=== PATIENT | female | born 1980 | race Caucasian/White ===

== ENCOUNTER → 2017-02-21 | Outpatient (CLI) | payer MEDICAID ==
--- NOTE | 2017-02-21 19:45 | Diagnostic Imaging Report ---
INDICATION: Vaginal pain, left lower quadrant pain. TECHNIQUE: Multiple real time conklin scale sonographic images were obtained of the pelvis transabdominally and transvaginally. CORRELATION STUDY: 05/24/2014 FINDINGS: UTERUS/ENDOMETRIUM: Uterus measures 9.1 x 6.2 x 4.6 cm. Endometrial thickness is 7 mm. The uterus and endometrium appearing unremarkable. RIGHT OVARY: Not visualized. LEFT OVARY: Not visualized. Neither ovary is visualized, perhaps a technical, positional or obscured by overlying bowel gas. No significant free pelvic fluid. IMPRESSION: 1. Limited pelvic ultrasound imaging. Ovaries are unable to be definitively localized. Dictated by: Dictated on workstation # [id number]
== END ==
LOC: RAD 09:58
PROVIDERS: ATTEND Nurse Practitioner
DX: N93.0 Postcoital and contact bleeding (principal)
CPT/HCPCS: 76830; 76856

== ENCOUNTER 2017-05-24 05:38 | Outpatient (CLI) | payer MEDICAID ==
[~2017-05-24] VITALS: Ht 158.8 cm; Wt 105.7 kg
[2017-05-24] MEDS ORDERED: METF500T4 PO (10:37)
[2017-05-24] MEDS ORDERED: PHEN-483 PO (10:37)
[2017-05-24] MEDS ORDERED: SERT100T PO (10:37)
[2017-05-24] MEDS ORDERED: MEDR10TA PO (10:37)
[2017-05-24] MEDS ORDERED: CYCL10TA9 PO (10:37)
[2017-05-24] MEDS ORDERED: ARIP15TA4 PO (10:37)
[2017-05-24] MEDS ORDERED: BUSP5TAB59 PO (10:37)
== END 2017-05-24 10:58 ==
LOC: PREOP 05:38
PROVIDERS: ATTEND Obstetrics & Gynecology
DX: Z01.818 Encounter for other preprocedural examination (principal); N92.0 Excessive and frequent menstruation with regular cycle

== ENCOUNTER 2017-05-30 07:20 | Day surgery (SDC) | payer MEDICAID ==
[~2017-05-30] VITALS: Ht 158.8 cm; Wt 105.7 kg
[~2017-05-30 07:20] MED LIST: ARIP15TA4 PO; BUSP5TAB59 PO; CYCL10TA9 PO; MEDR10TA PO; METF500T4 PO; PHEN-483 PO; SERT100T PO
--- OUTSIDE RECORDS SUMMARY | 2017-05-30 07:23 | XMS REPORT ---
Author Author YENIFER HUMMEL [facility] eClinicalWorks Address Unknown Phone Unavailable Care Team Providers Care Boxing Instructor Name Role Phone YENIFER HUMMEL CP Unavailable Allergies, Adverse Reactions, Alerts Substance Reaction Event Type Topamax chest heaviness Drug Allergy Sulfamethoxazole-Trimethoprim hives Drug Allergy Prozac anxiety Drug Allergy Problems Problem Type Condition Code Onset Dates Condition Status Assessment Neck pain M54.2 Active Problem Abnormal weight gain 783.1 Active Problem Bipolar I disorder, most recent episode (or current) depressed, unspecified 296.50 Active Problem Elevated blood pressure reading without diagnosis of hypertension 796.2 Active Problem Dietary surveillance and counseling V65.3 Active Assessment Trapezius muscle spasm M62.838 Active Problem Personal history of allergy to sulfonamides V14.2 Active Problem Major depressive disorder, single episode, unspecified 296.20 Active Medications Medication Code System Code Instructions Start Date End Date Status Dosage Sertraline HCl [facility] [address]-35 100 MG Orally Once a day August 26, 2014 1.5 tablets Abilify [facility] [address]-51 15 MG Orally Once a day Mar 05, 2014 1 tablet Cyclobenzaprine HCl [facility] [address]-90 10 MG Orally Three times a day PRN Feb 04, 2015 1 tablet Saxenda [facility] 0 Saxenda 18mg/3ml ([facility] 5345-5015-27) SUBCUT Once a week 1 injection BusPIRone HCl [facility] [address]-21 5 MG Orally Twice a day Oct 29, 2014 1 tablet UltiCare Pen [place] [facility] 8222-660466 29G X 12MM subcutaneous Once a day October 15, 2014 as directed Procedures Procedure Coding System Code Date Office Visit, Est Pt., Level 3 CPT-4 04052 Feb 04, 2015 Vital Signs Date/Time: Feb 04, 2015 Temperature 98.3 F Weight 218.4 lbs Height 63 in BMI 38.68 Index Blood Pressure Diastolic 82 mmHg Blood Pressure Systolic 110 mmHg Cardiac Monitoring Heart Rate 88 bpm Results Name Result Date Reference Range Unit Abnormality Flag Xray : Spine, Cervical Summary Purpose eClinicalWorks Submission
--- OUTSIDE RECORDS SUMMARY | 2017-05-30 07:23 | XMS REPORT ---
Author Author YENIFER HUMMEL Organization eClinicalWorks Address Unknown Phone Unavailable Care Team Providers Care Health Technician Hearing Name Role Phone YENIFER HUMMEL CP Unavailable Allergies No Known Allergies Problems Problem Type Condition Code Onset Dates Condition Status Problem Abnormal weight gain 783.1 Active Problem Bipolar I disorder, most recent episode (or current) depressed, unspecified 296.50 Active Problem Elevated blood pressure reading without diagnosis of hypertension 796.2 Active Problem Dietary surveillance and counseling V65.3 Active Problem Personal history of allergy to sulfonamides V14.2 Active Problem Major depressive disorder, single episode, unspecified 296.20 Active Medications Medication Code System Code Instructions Start Date End Date Status Dosage BusPIRone HCl [facility] [address]-89 5 MG Orally Twice a day Oct 29, 2014 1 tablet Results No Known Results Summary Purpose eClinicalWorks Submission
--- OUTSIDE RECORDS SUMMARY | 2017-05-30 07:23 | XMS REPORT ---
Author Author YENIFER HUMMEL [facility] eClinicalWorks Address Unknown Phone Unavailable Care Team Providers Care Cook Apprentice Name Role Phone YENIFER HUMMEL CP Unavailable Allergies, Adverse Reactions, Alerts Substance Reaction Event Type Topamax chest heaviness Drug Allergy Sulfamethoxazole-Trimethoprim hives Drug Allergy Prozac anxiety Drug Allergy Problems Problem Type Condition Code Onset Dates Condition Status Assessment Radiculopathy, cervical region M54.12 Active Problem Abnormal weight gain 783.1 Active Problem Bipolar I disorder, most recent episode (or current) depressed, unspecified 296.50 Active Problem Elevated blood pressure reading without diagnosis of hypertension 796.2 Active Problem Dietary surveillance and counseling V65.3 Active Assessment Cervicalgia M54.2 Active Problem Personal history of allergy to sulfonamides V14.2 Active Problem Major depressive disorder, single episode, unspecified 296.20 Active Medications Medication Code System Code Instructions Start Date End Date Status Dosage BusPIRone HCl [facility] [address]-37 5 MG Orally Twice a day Oct 29, 2014 1 tablet Sertraline HCl [facility] [address]-62 100 MG Orally Once a day August 26, 2014 1.5 tablets Saxenda NDC 0 Saxenda 18mg/3ml ([facility] 5672-9917-31) SUBCUT Once a week 1 injection Cyclobenzaprine HCl [facility] [address]-44 10 MG Orally Three times a day PRN Feb 04, 2015 1 [address] [facility] [address]-33 15 MG Orally Once a day Mar 05, 2014 1 tablet UltiCare Pen [place] [facility] 8222-773236 29G X 12MM subcutaneous Once a day October 15, 2014 as directed Procedures Procedure Coding System Code Date Office Visit, Est Pt., Level 3 CPT-4 26220 Feb 16, 2015 Vital Signs Date/Time: Feb 16, 2015 Temperature 98.4 F Weight 215 lbs Height 63 in BMI 38.08 Index Blood Pressure Diastolic 60 mmHg Blood Pressure Systolic 120 mmHg Cardiac Monitoring Heart Rate 80 bpm Results No Known Results Summary Purpose eClinicalWorks Submission
--- OUTSIDE RECORDS SUMMARY | 2017-05-30 07:23 | XMS REPORT ---
Author Author IFEANYI CASTILLO [facility] Address [address] [place] [address] Care Team Providers Care Executive Director Of Nursing Name Role Phone CASTILLOIFEANYI TAYLOR Unavailable PROBLEMS Type Condition ICD9-CM Code [id number] Code Onset Dates Condition Status SNOMED Code Problem Obesity due to excess calories, unspecified obesity severity E66.09 Active 177998635 Problem Anhedonia R45.84 Active 58303391 Problem Anxiety F41.9 Active 36206962 Problem Bipolar I disorder, most recent episode depressed F31.30 Active 82884021 Problem Gallstones K80.20 Active 331159696 Problem Muscle spasm M62.838 Active 07435654 Problem Elevated fasting blood sugar R73.01 Active 114303675 Problem Pain in right shoulder M25.511 Active 07870600 Problem Pain in left shoulder M25.512 Active 10624374 Problem Mixed hyperlipidemia E78.2 Active 927310407 Problem Type 2 diabetes mellitus with hyperglycemia, without long-term current use of insulin E11.65 Active 54109344 ALLERGIES No Information SOCIAL HISTORY Never Assessed PLAN OF CARE VITAL SIGNS MEDICATIONS Medication Instructions Dosage Frequency Start Date End Date Duration Status Sertraline HCl 100 mg Orally Once a day 1.5 tablets 24h Aug, 0 days Active BusPIRone HCl 5 mg Orally Twice a day 1 tablet 12h Oct, 0 days Active Abilify 15 MG Orally Once a day 1 tablet 24h Feb, 0 days Active RESULTS No Results PROCEDURES No Known procedures IMMUNIZATIONS No Known Immunizations MEDICAL (GENERAL) HISTORY Type Description Date Medical History depression Medical History allergies Medical History obesity Medical History anxiety Medical History Personal history of allergy to sulfonamides Surgical History cholecystectomy 05/2016 Hospitalization History childbirth
--- OUTSIDE RECORDS SUMMARY | 2017-05-30 07:24 | XMS REPORT ---
Author YENIFER Nesbitt eClinicalWorks Address Unknown Phone Unavailable Care Team Providers Care National Account Representative Name Role Phone YENIFER HUMMEL CP Unavailable Allergies, Adverse Reactions, Alerts Substance Reaction Event Type Topamax chest heaviness Drug Allergy Sulfamethoxazole-Trimethoprim hives Drug Allergy Prozac anxiety Drug Allergy Problems Problem Type Condition ICD-9 Code Onset Dates Condition Status Problem Major depressive disorder, recurrent episode, unspecified 296.30 Active Problem Other abnormal glucose 790.29 Active Problem Face, neck, and scalp except eye, insect bite, nonvenomous, without mention of infection 910.4 Active Problem Elevated blood pressure reading without diagnosis of hypertension 796.2 Active Assessment Bronchitis 490 Active Problem Abnormal weight gain 783.1 Active Problem Depressive disorder, not elsewhere classified 311 Active Problem Anxiety state, unspecified 300.00 Active Problem Unspecified ganglion 727.43 Active Problem Allergic rhinitis due to pollen 477.0 Active Problem Acute suppurative otitis media without spontaneous rupture of eardrum 382.00 Active Problem Dietary surveillance and counseling V65.3 Active Problem Headache 784.0 Active Assessment Cough 786.2 Active Problem Allergic rhinitis, cause unspecified 477.9 Active Problem Major depressive disorder, single episode, unspecified 296.20 Active Problem Personal history of allergy to sulfonamides V14.2 Active Problem Major depressive disorder, recurrent episode, severe, without mention of psychotic behavior 296.33 Active Problem Disturbance of skin sensation 782.0 Active Problem Pain in thoracic spine 724.1 Active Problem Bipolar I disorder, most recent episode (or current) depressed, unspecified 296.50 Active Medications Medication Code System Code Instructions Start Date End Date Status Dosage UltiCare Pen [place] [facility] 8222-708354 29G X 12MM subcutaneous Once a day October 15, 2014 as directed Saxenda [place] 0 Saxenda 18mg/3ml ([facility] 2171-0428-84) SUBCUT Once a day [address] [facility] [address]-36 250 MG Orally Once a day Nov 13, 2014 Nov 18, 2014 2 tablets on the first day, then 1 tablet daily for 4 days BusPIRone HCl [facility] [address]-68 5 MG Orally Twice a day Oct 29, 2014 1 tablet Tessalon [place] [facility] [address]-95 100 MG Orally Three times a day Nov 13, 2014 1 capsule as needed Sertraline HCl [facility] [address]-32 100 MG Orally Once a day August 26, 2014 1.[address] [facility] [address]-64 15 MG Orally Once a day Mar 05, 2014 1 tablet Procedures Procedure Coding System Code Date Office Visit, Est Pt., Level 3 CPT-4 62513 Nov 13, 2014 Vital Signs Date/Time: Nov 13, 2014 Temperature 98.2 F Weight 213.3 lbs Height 63 in BMI 37.78 Index Blood Pressure Diastolic 72 mmHg Blood Pressure Systolic 114 mmHg Cardiac Monitoring Heart Rate 88 bpm Results No Known Results Summary Purpose eClinicalWorks Submission
--- OUTSIDE RECORDS SUMMARY | 2017-05-30 07:24 | XMS REPORT ---
Author Author YENIFER HUMMEL [facility] eClinicalWorks Address Unknown Phone Unavailable Care Team Providers Care Circle Saw Operator Name Role Phone YENIFER HUMMEL Unavailable Allergies No Known Allergies Problems Problem [...] Date End Date Status Dosage Sertraline HCl [facility] [address]-25 100 MG Orally Once a day August 26, 2014 1.5 tablets Abilify [facility] [address]-13 15 MG Orally Once a day Mar 05, 2014 1 tablet Results No Known Results Summary Purpose eClinicalWorks Submission
--- OUTSIDE RECORDS SUMMARY | 2017-05-30 07:24 | XMS REPORT ---
Author Author YENIFER HUMMEL [facility] eClinicalWorks Address Unknown Phone Unavailable Care Team Providers Care Seamless Tube Mill Operator Name Role Phone YENIFER HUMMEL Unavailable [...] Instructions Start Date End Date Status Dosage Saxenda (Dose Escalation) [facility] 6057-6147-80 18 mg/3 mL Subcutaneous Once a day Apr 11, 2015 0.6 mg QD x 7 days, 1.2 mg QD x 7 days, 1.8 mg QD x 7 days, 2.4 mg QD x 7 days, then 3 mg QD (GOAL) Results No Known Results Summary Purpose eClinicalWorks Submission
--- OUTSIDE RECORDS SUMMARY | 2017-05-30 07:24 | XMS REPORT ---
Author Author YEYO RUDOLPH [facility] Address [address] [place] [address] Care Team Providers Care Tow Picker Name Role Phone YEYO RUDOLPH Unavailable PROBLEMS Type Condition ICD9-CM Code [id number] Code Onset Dates Condition Status SNOMED Code Problem Obesity due to excess calories, unspecified obesity severity E66.09 Active 199482229 Problem Anhedonia R45.84 Active 15994497 Problem Anxiety F41.9 Active 72309640 Problem Bipolar I disorder, most recent episode depressed F31.30 Active 85516012 Problem Gallstones K80.20 Active 265709499 Problem Muscle spasm M62.838 Active 24060073 Problem Elevated fasting blood sugar R73.01 Active 636183064 Problem Pain in right shoulder M25.511 Active 19200275 Problem Pain in left shoulder M25.512 Active 59289508 Problem Mixed hyperlipidemia E78.2 Active 965305883 Problem Type 2 diabetes mellitus with hyperglycemia, without long-term current use of insulin E11.65 Active 65286821 ALLERGIES Substance Reaction Event Type Date Status Topamax chest heaviness Drug Allergy July, Active Sulfamethoxazole-Trimethoprim hives Drug Allergy July, Active Prozac anxiety Drug Allergy July, Active SOCIAL HISTORY Never Assessed PLAN OF CARE Activity Details Follow Up 4 Weeks Reason:CHM DM VITAL SIGNS Height 63 in 2016-08-01 Weight 243.4 lbs 2016-08-01 Temperature 98.1 degrees Fahrenheit 2016-08-01 Heart Rate 94 bpm 2016-08-01 Respiratory Rate 20 2016-08-01 BMI 43.11 kg/m2 2016-08-01 Blood pressure systolic 132 mmHg 2016-08-01 Blood pressure diastolic 88 mmHg 2016-08-01 MEDICATIONS Medication Instructions Dosage Frequency Start Date End Date Duration Status Abilify 15 MG Orally Once a day 1 tablet 24h 0 days Active Cyclobenzaprine HCl 10 MG Orally Three times a day PRN 1 tablet Jan, Active Metformin HCl 500 mg Orally Twice a day 2 tablet with meals (start with 1 tablet 1 time per day and increase as tolerated to goal ) 12h 10 Jul, 2016 30 day(s) Active Sertraline HCl 100 mg Orally Once a day 1.5 tablets 24h 0 days Active BusPIRone HCl 5 mg Orally Twice a day 1 tablet 12h 0 days Active RESULTS Name Result Date Reference Range A1C (IN HOUSE) 2016-08-01 A1C IN HOUSE 7.2 4.3 - 5.6 % Previous A1c Lot [id number] Exp date 12/2017 PROCEDURES Procedure Date Ordered Result Body Site GLYCATED HEMOGLOBIN TEST August 01, 2016 IMMUNIZATIONS No Known Immunizations MEDICAL (GENERAL) HISTORY Type Description Date Medical History depression Medical History allergies Medical History obesity Medical History anxiety Medical History Personal history of allergy to sulfonamides Surgical History cholecystectomy 05/2016 Hospitalization History childbirth
--- OUTSIDE RECORDS SUMMARY | 2017-05-30 07:24 | XMS REPORT ---
Author Author YENIFER HUMMEL [facility] eClinicalWorks Address Unknown Phone Unavailable Care Team Providers Care Statement Services Representative Name Role Phone YENIFER HUMMEL CP Unavailable Allergies, Adverse Reactions, Alerts Substance Reaction Event Type Topamax chest heaviness Drug Allergy Sulfamethoxazole-Trimethoprim hives Drug Allergy Prozac anxiety Drug Allergy Problems Problem Type Condition Code Onset Dates Condition Status Assessment Non-intractable vomiting with nausea, vomiting of unspecified type R11.2 Active Assessment Lumbar radicular pain M54.16 Active Problem Abnormal weight gain 783.1 Active Problem Bipolar I disorder, most recent episode (or current) depressed, unspecified 296.50 Active Problem Elevated blood pressure reading without diagnosis of hypertension 796.2 Active Problem Dietary surveillance and counseling V65.3 Active Assessment Right upper quadrant pain R10.11 Active Problem Personal history of allergy to sulfonamides V14.2 Active Problem Major depressive disorder, single episode, unspecified 296.20 Active Medications Medication Code System Code Instructions Start Date End Date Status Dosage BusPIRone HCl [facility] [address]-71 5 MG Orally Twice a day Oct 29, 2014 1 tablet Sertraline HCl [facility] [address]-28 100 MG Orally Once a day August 26, 2014 1.5 tablets Abilify [facility] [address]-10 15 MG Orally Once a day Mar 05, 2014 1 tablet Cyclobenzaprine HCl [facility] [address]-36 10 MG Orally Three times a day PRN Feb 04, 2015 1 tablet Procedures Procedure Coding System Code Date Office Visit, Est Pt., Level 3 CPT-4 76871 October 10, 2015 Vital Signs Date/Time: October 10, 2015 Cardiac Monitoring Heart Rate 96 bpm Weight 233.8 lbs Height 63 in Blood Pressure Diastolic 70 mmHg Blood Pressure Systolic 110 mmHg Results No Known Results Summary Purpose eClinicalWorks Submission
--- OUTSIDE RECORDS SUMMARY | 2017-05-30 07:24 | XMS REPORT ---
Author Author YENIFER HUMMEL Organization eClinicalWorks Address Unknown Phone Unavailable Care Team Providers Care Literary Writer Name Role Phone YENIFER HUMMEL CP Unavailable [...] Start Date End Date Status Dosage Saxenda NDC 0 Saxenda 18mg/3ml ([place] 3978-4203-88) SUBCUT Once a week 1 injection Results No Known Results Summary Purpose eClinicalWorks Submission
--- OUTSIDE RECORDS SUMMARY | 2017-05-30 07:24 | XMS REPORT ---
Author Author IFEANYI CASTILLO Organization eClinicalWorks Address Unknown Phone Unavailable Care Team Providers Care Sandal Parts Assembler Name Role Phone IFEANYI CASTILLO CP Unavailable Allergies No Known Allergies Problems Problem Type Condition Code Onset Dates Condition Status Problem Elevated blood pressure reading without diagnosis of hypertension 796.2 Active Problem Abnormal weight gain 783.1 Active Problem Bipolar I disorder, most recent episode depressed F31.30 Active Problem Major depressive disorder, single episode, unspecified 296.20 Active Problem Dietary surveillance and counseling V65.3 Active Problem Bipolar I disorder, most recent episode (or current) depressed, unspecified 296.50 Active Problem Personal history of allergy to sulfonamides V14.2 Active Medications Medication Code System Code Instructions Start Date End Date Status Dosage Sertraline HCl [facility] [address]-32 100 MG Orally Once a day August 26, 2014 1.5 tablets BusPIRone HCl [facility] [address]-59 5 mg Orally Twice a day Oct 29, 2014 1 tablet Results No Known Results Summary Purpose eClinicalWorks Submission
--- OUTSIDE RECORDS SUMMARY | 2017-05-30 07:24 | XMS REPORT ---
Author Author IFEANYI CASTILLO Organization eClinicalWorks Address Unknown Phone Unavailable Care Team Providers Care Asphalt Screed Operator Name Role Phone IEFANYI CASTILLO CP Unavailable Allergies, Adverse Reactions, Alerts Substance Reaction Event Type Topamax chest heaviness Drug Allergy Sulfamethoxazole-Trimethoprim hives Drug Allergy Prozac anxiety Drug Allergy Problems Problem Type Condition Code Onset Dates Condition Status Assessment Bipolar I disorder, most recent episode depressed F31.30 Active Problem Elevated blood pressure reading without [...] Instructions Start Date End Date Status Dosage Abilify [facility] [address]-95 15 MG Orally Once a day Mar 05, 2014 1 tablet Sertraline HCl [facility] [address]-62 100 MG Orally Once a day August 26, 2014 1.5 tablets BusPIRone HCl [facility] [address]-72 5 MG Orally Twice a day Oct 29, 2014 1 tablet Cyclobenzaprine HCl [facility] [address]-42 10 MG Orally Three times a day PRN Feb 04, 2015 1 tablet Procedures Procedure Coding System Code Date Office Visit, Est Pt., Level 3 CPT-4 94748 Dec 20, 2015 Vital Signs Date/Time: Dec 20, 2015 Cardiac Monitoring Heart Rate 84 bpm Weight 239.4 lbs Height 63 in BMI 42.40 Index Blood Pressure Diastolic 70 mmHg Blood Pressure Systolic 128 mmHg Results No Known Results Summary Purpose eClinicalWorks Submission
--- OUTSIDE RECORDS SUMMARY | 2017-05-30 07:24 | XMS REPORT ---
Author Author YENIFER HUMMEL Organization eClinicalWorks Address Unknown Phone Unavailable Care Team Providers Care Pcb Design Engineer Name Role Phone YENIFER HUMMEL CP Unavailable Allergies, Adverse Reactions, Alerts Substance Reaction Event Type Topamax chest heaviness Drug Allergy Sulfamethoxazole-Trimethoprim hives Drug Allergy Prozac anxiety Drug Allergy Problems Problem Type Condition ICD-9 Code Onset Dates Condition Status Assessment Obesity 278.00 Active Problem Abnormal weight gain 783.1 Active Problem Bipolar I disorder, most recent episode (or current) depressed, unspecified 296.50 Active Problem Elevated blood pressure reading without diagnosis of hypertension 796.2 Active Problem Dietary surveillance and counseling V65.3 Active Assessment Dietary surveillance and counseling V65.3 Active Problem Personal history of allergy to sulfonamides V14.2 Active Problem Major depressive disorder, single episode, unspecified 296.20 Active Medications Medication Code System Code Instructions Start Date End Date Status Dosage Abilify [facility] [address]-34 15 MG Orally Once a day Mar 05, 2014 1 tablet UltiCare Pen [place] [facility] 8222-164322 29G X 12MM subcutaneous Once a day October 15, 2014 as directed BusPIRone HCl [facility] [address]-60 5 MG Orally Twice a day Oct 29, 2014 1 tablet Sertraline HCl [facility] [address]-76 100 MG Orally Once a day August 26, 2014 1.5 tablets Cipro [facility] [address]-83 250 MG Orally every 12 hrs Dec 03, 2014 Dec 10, 2014 1 tablet Saxenda [facility] 0 Saxenda 18mg/3ml ([facility] 1918[address]-56) SUBCUT Once a day 1 injection Procedures Procedure Coding System Code Date Office Visit, Est Pt., Level 3 CPT-4 96410 Dec 08, 2014 Vital Signs Date/Time: Dec 08, 2014 Temperature 97.6 F Weight 213.0 lbs Height 63 in BMI 37.73 Index Blood Pressure Diastolic 80 mmHg Blood Pressure Systolic 110 mmHg Cardiac Monitoring Heart Rate 84 bpm Results No Known Results Summary Purpose eClinicalWorks Submission
--- OUTSIDE RECORDS SUMMARY | 2017-05-30 07:24 | XMS REPORT ---
Author Author [facility], [facility] eClinicalWorks Address Unknown Phone Unavailable Care Team Providers Care Maintenance Trainer Name Role Phone [facility], [facility] CP Unavailable Allergies No Known Allergies Problems Problem Type Condition Code Onset Dates Condition Status Problem Abnormal weight gain 783.1 Active Problem Bipolar I disorder, most recent episode (or current) depressed, unspecified 296.50 Active Problem Elevated blood pressure reading without diagnosis of hypertension 796.2 Active Problem Dietary surveillance and counseling V65.3 Active Assessment Bipolar I disorder, most recent episode depressed F31.30 Active Problem Personal history of allergy to sulfonamides V14.2 Active Problem Major depressive disorder, single episode, unspecified 296.20 Active Medications No Known Medications Procedures Procedure Coding System Code Date [facility] CPT-4 S0280 Apr 14, 2015 Results No Known Results Summary Purpose eClinicalWorks Submission
--- OUTSIDE RECORDS SUMMARY | 2017-05-30 07:24 | XMS REPORT ---
Author Author YENIFER HUMMEL Organization eClinicalWorks Address Unknown Phone Unavailable Care Team Providers Care Process Design Chemical Engineer Name Role Phone YENIFER HUMMEL CP Unavailable Allergies No Known Allergies Problems Problem Type Condition Code Onset Dates Condition Status Problem Abnormal weight gain 783.1 Active Problem Bipolar I disorder, most recent episode (or current) depressed, unspecified 296.50 Active Problem Elevated blood pressure reading without diagnosis of hypertension 796.2 Active Problem Dietary surveillance and counseling V65.3 Active Assessment Obesity 278.00 Active Problem Personal history of allergy to sulfonamides V14.2 Active Problem Major depressive disorder, single episode, unspecified 296.20 Active Medications Medication Code System Code Instructions Start Date End Date Status Dosage Saxenda NDC 0 Saxenda 18mg/3ml (ND 2650-9555-90) SUBCUT Once a day 1 injection Results No Known Results Summary Purpose eClinicalWorks Submission
[2017-05-30] MEDS ORDERED: MIDAZOLAM 2 MG/2 ML (VERSED) VIAL ONE (07:25)
[2017-05-30] MEDS ORDERED: fentaNYL INJECTION 100 MCG/2 ML AMP ONE (07:25)
--- OUTSIDE RECORDS SUMMARY | 2017-05-30 07:25 | XMS REPORT ---
Author Author [facility] eClinicalWorks Address Unknown Phone Unavailable Care Team Providers Care Polisher Hand Name Role Phone [facility], [facility] CP Unavailable Allergies No Known Allergies Problems Problem Type Condition Code Onset Dates Condition Status Problem Abnormal weight gain 783.1 Active Problem Bipolar I disorder, most recent episode (or current) depressed, unspecified 296.50 Active Problem Elevated blood pressure reading without diagnosis of hypertension 796.2 Active Problem Dietary surveillance and counseling V65.3 Active Assessment Bipolar disorder, current episode depressed, mild or moderate severity, unspecified F31.30 Active Problem Personal history of allergy to sulfonamides V14.2 Active Problem Major depressive disorder, single episode, unspecified 296.20 Active Medications No Known Medications Procedures Procedure Coding System Code Date HEALTH PROMOTION CPT-4 S0280 Feb 21, 2015 Results No Known Results Summary Purpose eClinicalWorks Submission
--- OUTSIDE RECORDS SUMMARY | 2017-05-30 07:25 | XMS REPORT ---
Author Author [facility] eClinicalWorks Address Unknown Phone Unavailable Care Team Providers Care Environmental Services Lead Name Role Phone [facility], [facility] CP Unavailable Allergies No Known Allergies Problems Problem Type Condition ICD-9 Code Onset [...] V65.3 Active Problem Headache 784.0 Active Assessment Bipolar 1 disorder, depressed 296.50 Active Problem Allergic rhinitis, cause unspecified 477.9 [...] (or current) depressed, unspecified 296.50 Active Medications No Known Medications Procedures Procedure Coding System Code Date HEALTH PROMOTION CPT-4 S0280 Nov 15, 2014 Results No Known Results Summary Purpose [employer] Submission
--- OUTSIDE RECORDS SUMMARY | 2017-05-30 07:25 | XMS REPORT ---
Author Author YENIFER HUMMEL Organization eClinicalWorks Address Unknown Phone Unavailable Care Team Providers Care Digester Capper Name Role Phone YENIFER HUMMEL CP Unavailable [...] Date End Date Status Dosage UltiCare Pen [place] [facility] [id number] 29G X 12MM subcutaneous Once a day October 15, 2014 as directed Results No Known Results Summary Purpose eClinicalWorks Submission
--- OUTSIDE RECORDS SUMMARY | 2017-05-30 07:25 | XMS REPORT ---
Author Author YENIFER HUMMEL Organization e[employer]Works Address Unknown Phone Unavailable Care Team Providers Care Senior Engineering Team Leader Name Role Phone YENIFER HUMMEL CP Unavailable [...] unspecified 296.20 Active Medications No Known Medications Results No Known Results Summary Purpose eClinicalWorks Submission
--- OUTSIDE RECORDS SUMMARY | 2017-05-30 07:25 | XMS REPORT ---
Author Author YENIFER HUMMEL eClinical[employer] Address Unknown Phone Unavailable Care Team Providers Care Microsoft Bi Consultant Name Role Phone YENIFER HUMMEL CP Unavailable [...] Dietary surveillance and counseling V65.3 Active Assessment Non morbid obesity due to excess calories E66.09 Active Problem Personal history of allergy to sulfonamides V14.2 Active Problem Major depressive disorder, single episode, unspecified 296.20 Active Medications Medication Code System Code Instructions Start Date End Date Status Dosage Cyclobenzaprine HCl [facility] [address]-94 10 MG Orally Three times a day PRN Feb 04, 2015 1 tablet Sertraline HCl [facility] [address]-14 100 MG Orally Once a day August 26, 2014 1.5 tablets UltiCare Pen [place] [facility] 8222-999833 29G X 12MM subcutaneous Once a day October 15, 2014 as directed BusPIRone HCl [facility] [address]-95 5 MG Orally Twice a day Oct 29, 2014 1 tablet Abilify [facility] [address]-86 15 MG Orally Once a day Mar 05, 2014 1 tablet Saxenda [facility] 0 Saxenda 18mg/3ml ([facility] 9620-6279-56) SUBCUT Once a week 1 injection Procedures Procedure Coding System Code Date COMPLETE CBC W/AUTO DIFF WBC CPT-4 89605 Mar 14, 2015 COMPREHEN METABOLIC PANEL CPT-4 00623 Mar 14, 2015 ASSAY THYROID STIM HORMONE CPT-4 19805 Mar 14, 2015 Office Visit, Est Pt., Level 3 CPT-4 49179 Mar 14, 2015 VENIPUNCT, ROUTINE* CPT-4 48235 Mar 14, 2015 Vital Signs Date/Time: Mar 14, 2015 Temperature 97.1 F Weight 219.4 lbs Height 63 in BMI 38.86 Index Blood Pressure Diastolic 88 mmHg Blood Pressure Systolic 120 mmHg Cardiac Monitoring Heart Rate 88 bpm Results No Known Results Summary Purpose eClinicalWorks Submission
--- OUTSIDE RECORDS SUMMARY | 2017-05-30 07:25 | XMS REPORT ---
Author Author SUSANNA BA [facility] Address [address] [place] [address] Care Team Providers Care Classroom Paraprofessional Name Role Phone SUSANNA BA Unavailable PROBLEMS Type Condition ICD9-CM Code IHT37-WH Code Onset Dates Condition Status SNOMED Code Problem Obesity due to excess calories, unspecified obesity severity E66.09 Active 409961787 Problem Anhedonia R45.84 Active 36970292 Problem Anxiety F41.9 Active 26531062 Problem Bipolar I disorder, most recent episode depressed F31.30 Active 28860901 Problem Gallstones K80.20 Active 609174031 Problem Muscle spasm M62.838 Active 51619316 Problem Elevated fasting blood sugar R73.01 Active 942214290 Problem Pain in right shoulder M25.511 Active 02606273 Problem Pain in left shoulder M25.512 Active 98418803 Problem Mixed hyperlipidemia E78.2 Active 394143022 Problem Type 2 diabetes mellitus with hyperglycemia, without long-term current use of insulin E11.65 Active 63343512 ALLERGIES Substance Reaction Event Type Date Status Topamax chest heaviness Drug Allergy Apr, Active Sulfamethoxazole-Trimethoprim hives Drug Allergy Apr, Active Prozac anxiety Drug Allergy Apr, Active SOCIAL HISTORY Never Assessed PLAN OF CARE Activity Details Follow Up prn Reason: VITAL SIGNS Height 63 in 2016-05-17 Weight 244 lbs 2016-05-17 Temperature 98.1 degrees Fahrenheit 2016-05-17 Heart Rate 94 bpm 2016-05-17 Respiratory Rate 16 2016-05-17 BMI 43.22 kg/m2 2016-05-17 Blood pressure systolic 126 mmHg 2016-05-17 Blood pressure diastolic 70 mmHg 2016-05-17 MEDICATIONS Medication Instructions Dosage Frequency Start Date End Date Duration Status BusPIRone HCl 5 mg Orally Twice a day 1 tablet 12h Oct, Active Sertraline HCl 100 MG Orally Once a day 1.5 tablets 24h Aug, Active Abilify 15 MG Orally Once a day 1 tablet 24h Feb, Active RESULTS No Results PROCEDURES No Known procedures IMMUNIZATIONS No Known Immunizations MEDICAL (GENERAL) HISTORY Type Description Date Medical History depression Medical History allergies Medical History obesity Medical History anxiety Medical History Personal history of allergy to sulfonamides Surgical History cholecystectomy 05/2016 Hospitalization History childbirth
--- OUTSIDE RECORDS SUMMARY | 2017-05-30 07:25 | XMS REPORT ---
Author Author [facility] eClinicalWorks Address Unknown Phone Unavailable Care Team Providers Care Keyseater Operator Name Role Phone [facility] CP Unavailable Allergies No Known Allergies [...] System Code Date HEALTH PROMOTION CPT-4 S0280 Mar 24, 2015 Results No Known Results Summary Purpose eClinicalWorks Submission
--- OUTSIDE RECORDS SUMMARY | 2017-05-30 07:25 | XMS REPORT ---
Author Author YENIFER HUMMEL eClinicalWorks Address Unknown Phone Unavailable Care Team Providers Care Wire Weaver Cloth Name Role Phone YENIFER HUMMEL Unavailable Allergies, Adverse Reactions, Alerts Substance Reaction [...] without diagnosis of hypertension 796.2 Active Assessment Urinary tract infection 599.0 Active Problem Abnormal weight gain 783.1 Active Problem Depressive disorder, not elsewhere classified 311 Active Problem Anxiety state, unspecified 300.00 Active Problem Unspecified ganglion 727.43 Active Problem Allergic rhinitis due to pollen 477.0 Active Problem Acute suppurative otitis media without spontaneous rupture of eardrum 382.00 Active Problem Dietary surveillance and counseling V65.3 Active Problem Headache 784.0 Active Assessment Dysuria 788.1 Active Problem Allergic rhinitis, cause unspecified 477.9 [...] Start Date End Date Status Dosage Abilify [facility] [address]-37 15 MG Orally Once a day Mar 05, 2014 1 tablet BusPIRone HCl [facility] [address]-18 5 MG Orally Twice a day Oct 29, 2014 1 tablet Saxenda [facility] 0 Saxenda 18mg/3ml ([facility] 6684-5769-30) SUBCUT Once a day 1 injection Sertraline HCl [facility] [address]-28 100 MG Orally Once a day August 26, 2014 1.5 tablets Pyridium [facility] [address]-56 200 MG Orally Three times a day Dec 03, 2014 Dec 05, 2014 1 tablet after meals UltiCare Pen [place] [facility] 8222-154086 29G X 12MM subcutaneous Once a day October 15, 2014 as directed Cipro [facility] [address]-03 250 MG Orally every 12 hrs Dec 03, 2014 Dec 10, 2014 1 tablet Procedures Procedure Coding System Code Date URINALYSIS, AUTO, W/O SCOPE CPT-4 29074 Dec 03, 2014 Office Visit, Est Pt., Level 3 CPT-4 54831 Dec 03, 2014 URINE CULTURE/COLONY COUNT CPT-4 53966 Dec 03, 2014 Vital Signs Date/Time: Dec 03, 2014 Temperature 96.8 F Weight 215 lbs Height 63 in BMI 38.08 Index Blood Pressure Diastolic 80 mmHg Blood Pressure Systolic 110 mmHg Cardiac Monitoring Heart Rate 80 bpm Results Name Result Date Reference Range Unit Abnormality Flag UA LONG DIP (IN HOUSE) Summary Purpose eClinicalWorks Submission
--- OUTSIDE RECORDS SUMMARY | 2017-05-30 07:25 | XMS REPORT ---
Author Author YENIFER HUMMEL Organization eClinicalWorks Address Unknown Phone Unavailable Care Team Providers Care Filler Feeder Name Role Phone YENIFER HUMMEL CP Unavailable [...] Date End Date Status Dosage Cyclobenzaprine HCl [facility] [address]-94 10 MG Orally Three times a day PRN Feb 04, 2015 1 tablet Results No Known Results Summary Purpose eClinicalWorks Submission
--- OUTSIDE RECORDS SUMMARY | 2017-05-30 07:25 | XMS REPORT ---
Author YENIFER Nesbitt eClinicalWorks Address Unknown Phone Unavailable Care Team Providers Care Floor Polisher Name Role Phone YENIFER HUMMEL CP Unavailable Allergies, Adverse Reactions, Alerts Substance Reaction Event Type Topamax chest heaviness Drug Allergy Sulfamethoxazole-Trimethoprim hives Drug Allergy Prozac anxiety Drug Allergy Problems Problem Type Condition Code Onset Dates Condition Status Assessment Other obesity due to excess calories E66.09 Active Problem Abnormal weight gain 783.1 Active Problem Bipolar I disorder, most recent episode (or current) depressed, unspecified 296.50 Active Problem Elevated blood pressure reading without diagnosis of hypertension 796.2 Active Problem Dietary surveillance and counseling V65.3 Active Assessment Dietary counseling and surveillance Z71.3 Active Problem Personal history of allergy to sulfonamides V14.2 Active Problem Major depressive disorder, single episode, unspecified 296.20 Active Medications Medication Code System Code Instructions Start Date End Date Status Dosage Abilify [facility] [address]-27 15 MG Orally Once a day Mar 05, 2014 1 tablet Sertraline HCl [facility] [address]-93 100 MG Orally Once a day August 26, 2014 1.5 tablets Saxenda (Dose Escalation) [facility] 7529-6597-25 18 mg/3 mL Subcutaneous Once a day Apr 11, 2015 0.6 mg QD x 7 days, 1.2 mg QD x 7 days, 1.8 mg QD x 7 days, 2.4 mg QD x 7 days, then 3 mg QD (GOAL) Cyclobenzaprine HCl [facility] [address]-00 10 MG Orally Three times a day PRN Feb 04, 2015 1 tablet BusPIRone HCl [facility] [address]-12 5 MG Orally Twice a day Oct 29, 2014 1 tablet UltiCare Pen [place] [facility] 8222-565777 29G X 12MM subcutaneous Once a day October 15, 2014 as directed Procedures Procedure Coding System Code Date Office Visit, Est Pt., Level 3 CPT-4 32024 June 16, 2015 Vital Signs Date/Time: June 16, 2015 Temperature 98.1 F Weight 232.4 lbs Height 63 in BMI 41.16 Index Blood Pressure Diastolic 82 mmHg Blood Pressure Systolic 110 mmHg Cardiac Monitoring Heart Rate 96 bpm Results No Known Results Summary Purpose eClinicalWorks Submission
--- OUTSIDE RECORDS SUMMARY | 2017-05-30 07:26 | XMS REPORT | Continuity of Care Document ---
Author Author [facility] Address Unknown Phone Unavailable Allergies Active Description Code Type Severity Reaction Onset Reported/Identified Relationship to Patient Clinical Status Yes Sulfa (Sulfonamide Antibiotics) Drug Allergy N/A N/A 06/23/2012 Yes Topamax Drug Allergy N/A N/A 06/23/2012 Yes Sulfa (Sulfonamide Antibiotics) Drug Allergy 06/23/2012 Yes Topamax Drug Allergy 06/23/2012 Yes Bactrim DS 800-160 mg tablet Drug Allergy N/A N/A 10/09/2012 Yes fluoxetine 40 mg capsule Drug Allergy N/A N/A 01/29/2013 Yes fluoxetine [id number] Drug Allergy Mild ANXIETY/DEPRESS 05/24/2017 Yes Sulfa (Sulfonamide Antibiotics) [id number] Drug Allergy Mild HIVES 2017 Yes topiramate [id number] Drug Allergy Unknown N/A 05/24/2017 Medications There is no data. Problems Date Dx Coded Attending Type Code Diagnosis Diagnosed By 06/23/2012 311 DEPRESSIVE DISORDER NOS 06/23/2012 796.2 ELEVATED BLOOD PRESSURE READING WITHOUT DIAGNOSIS OF HYPERTENSION 06/23/2012 311 DEPRESSIVE DISORDER NOS 06/23/2012 796.2 ELEVATED BLOOD PRESSURE READING WITHOUT DIAGNOSIS OF HYPERTENSION 06/23/2012 311 DEPRESSIVE DISORDER NOS 06/23/2012 796.2 ELEVATED BLOOD PRESSURE READING WITHOUT DIAGNOSIS OF HYPERTENSION 06/23/2012 BRENDA RILEY DO 311 DEPRESSIVE DISORDER NOS 06/23/2012 BRENDA RILEY DO 796.2 ELEVATED BLOOD PRESSURE READING WITHOUT DIAGNOSIS OF HYPERTENSION 06/23/2012 IFEANYI CASTILLO APRN 311 DEPRESSIVE DISORDER NOS 06/23/2012 IFEANYI CASTILLO APRN 796.2 ELEVATED BLOOD PRESSURE READING WITHOUT DIAGNOSIS OF HYPERTENSION 06/23/2012 BRENDA RILEY DO 311 DEPRESSIVE DISORDER NOS 06/23/2012 BRENDA RILEY DO 796.2 ELEVATED BLOOD PRESSURE READING WITHOUT DIAGNOSIS OF HYPERTENSION 06/23/2012 CASTILLO PATIENT REGISTRAR, IFEANYI R 311 DEPRESSIVE DISORDER NOS 06/23/2012 IFEANYI CASTILLO APRN R 796.2 ELEVATED BLOOD PRESSURE READING WITHOUT DIAGNOSIS OF HYPERTENSION 06/23/2012 IFEANYI CASTILLO APRN R 311 DEPRESSIVE DISORDER NOS 06/23/2012 IFEANYI CASTILLO APRN R 796.2 ELEVATED BLOOD PRESSURE READING WITHOUT DIAGNOSIS OF HYPERTENSION 06/23/2012 ROSEMARY YOUNGER BRENDA K 311 DEPRESSIVE DISORDER NOS 06/23/2012 ROSEMARY YOUNGER BRENDA K 796.2 ELEVATED BLOOD PRESSURE READING WITHOUT DIAGNOSIS OF HYPERTENSION 06/23/2012 HELLWIG PATIENT REGISTRAR, YENIFER E 311 DEPRESSIVE DISORDER NOS 06/23/2012 HELWIG PATIENT REGISTRAR, YENIFER E 796.2 ELEVATED BLOOD PRESSURE READING WITHOUT DIAGNOSIS OF HYPERTENSION 06/23/2012 HELWIG PATIENT REGISTRAR, YENIFER E 311 DEPRESSIVE DISORDER NOS 06/23/2012 ROELWIG PATIENT REGISTRAR, YENIFER E 796.2 ELEVATED BLOOD PRESSURE READING WITHOUT DIAGNOSIS OF HYPERTENSION 06/23/2012 ROSEMARY DO, BRENDA K 311 DEPRESSIVE DISORDER NOS 06/23/2012 ROSEMARY YOUNGER, BRENDA K 796.2 ELEVATED BLOOD PRESSURE READING WITHOUT DIAGNOSIS OF HYPERTENSION 06/23/2012 CHRISTIN LCMF, CARRILLO W 311 DEPRESSIVE DISORDER NOS 06/23/2012 CHRISTIN LCMF, CARRILLO W 796.2 ELEVATED BLOOD PRESSURE READING WITHOUT DIAGNOSIS OF HYPERTENSION 06/23/2012 RILEY DO, BRENDA K 311 DEPRESSIVE DISORDER NOS 06/23/2012 ROSEMARY DO, BRENDA K 796.2 ELEVATED BLOOD PRESSURE READING WITHOUT DIAGNOSIS OF HYPERTENSION 06/23/2012 ROSEMARY DO, BRENDA K 311 DEPRESSIVE DISORDER NOS 06/23/2012 RILEY DO BRENDA K 796.2 ELEVATED BLOOD PRESSURE READING WITHOUT DIAGNOSIS OF HYPERTENSION 06/23/2012 MICHELLE GIRALDO RN E 311 DEPRESSIVE DISORDER NOS 06/23/2012 MICHELLE GIRALDO RN E 796.2 ELEVATED BLOOD PRESSURE READING WITHOUT DIAGNOSIS OF HYPERTENSION 06/23/2012 MICHELLE GIRALDO RN 311 DEPRESSIVE DISORDER NOS 06/23/2012 MICHELLE GIRALDO RN 796.2 ELEVATED BLOOD PRESSURE READING WITHOUT DIAGNOSIS OF HYPERTENSION 06/23/2012 MICHELLE GIRALDO RN E 311 DEPRESSIVE DISORDER NOS 06/23/2012 MICHELLE GIRALDO RN E 796.2 ELEVATED BLOOD PRESSURE READING WITHOUT DIAGNOSIS OF HYPERTENSION 06/23/2012 MICHELLE GIRALDO RN E 311 DEPRESSIVE DISORDER NOS 06/23/2012 GIRALDO RN, MICHELLE E 796.2 ELEVATED BLOOD PRESSURE READING WITHOUT DIAGNOSIS OF HYPERTENSION 06/23/2012 RILEY DO, BRENDA K 311 DEPRESSIVE DISORDER NOS 06/23/2012 ROSEMARY YOUNGER, BRENDA K 796.2 ELEVATED BLOOD PRESSURE READING WITHOUT DIAGNOSIS OF HYPERTENSION 06/23/2012 HELJOHAN MARLEY APRNE E 311 DEPRESSIVE DISORDER NOS 06/23/2012 ROELYENIFER HUITRON APRN E 796.2 ELEVATED BLOOD PRESSURE READING WITHOUT DIAGNOSIS OF HYPERTENSION 06/23/2012 ROSEMARY YOUNGER BRENDA K 311 DEPRESSIVE DISORDER NOS 06/23/2012 RILEY DOCAROL ANNA K 796.2 ELEVATED BLOOD PRESSURE READING WITHOUT DIAGNOSIS OF HYPERTENSION 06/23/2012 MICHELLE GIRALDO RN E 311 DEPRESSIVE DISORDER NOS 06/23/2012 MICHELLE GIRALDO RN 796.2 ELEVATED BLOOD PRESSURE READING WITHOUT DIAGNOSIS OF HYPERTENSION 06/23/2012 RILEY DO, BRENDA K 311 DEPRESSIVE DISORDER NOS 06/23/2012 ROSEMARY CAROL ANN YOUNGERA K 796.2 ELEVATED BLOOD PRESSURE READING WITHOUT DIAGNOSIS OF HYPERTENSION 06/23/2012 MICHELLE GIRALDO RN E 311 DEPRESSIVE DISORDER NOS 06/23/2012 MICHELLE GIRALDO RN E 796.2 ELEVATED BLOOD PRESSURE READING WITHOUT DIAGNOSIS OF HYPERTENSION 06/23/2012 MICHELLE GIRALDO RN E 311 DEPRESSIVE DISORDER NOS 06/23/2012 MICHELLE GIRALDO RN E 796.2 ELEVATED BLOOD PRESSURE READING WITHOUT DIAGNOSIS OF HYPERTENSION 06/23/2012 MICHELLE GIRALDO RN E 311 DEPRESSIVE DISORDER NOS 06/23/2012 MICHELLE GIRALDO RN E 796.2 ELEVATED BLOOD PRESSURE READING WITHOUT DIAGNOSIS OF HYPERTENSION 07/01/2012 910.4 INSECT BITE NONVENOMOUS OF FACE NECK AND SCALP EXCEPT EYE WITHOUT INFECTION 07/01/2012 910.4 INSECT BITE NONVENOMOUS OF FACE NECK AND SCALP EXCEPT EYE WITHOUT INFECTION 07/01/2012 910.4 INSECT BITE NONVENOMOUS OF FACE NECK AND SCALP EXCEPT EYE WITHOUT INFECTION 07/01/2012 BRENDA RILEY DO 910.4 INSECT BITE NONVENOMOUS OF FACE NECK AND SCALP EXCEPT EYE WITHOUT INFECTION 07/01/2012 IFEANYI CASTILLO APRN 910.4 INSECT BITE NONVENOMOUS OF FACE NECK AND SCALP EXCEPT EYE WITHOUT INFECTION 07/01/2012 BRENDA RILEY DO 910.4 INSECT BITE NONVENOMOUS OF FACE NECK AND SCALP EXCEPT EYE WITHOUT INFECTION 07/01/2012 CASTILLO PATIENT REGISTRAR, IFEANYI R 910.4 INSECT BITE NONVENOMOUS OF FACE NECK AND SCALP EXCEPT EYE WITHOUT INFECTION 07/01/2012 IFEANYI CASTILLO APRN 910.4 INSECT BITE NONVENOMOUS OF FACE NECK AND SCALP EXCEPT EYE WITHOUT INFECTION 07/01/2012 RILEY DO, BRENDA K 910.4 INSECT BITE NONVENOMOUS OF FACE NECK AND SCALP EXCEPT EYE WITHOUT INFECTION 07/01/2012 HELLELANA PATIENT REGISTRAR, YENIFER E 910.4 INSECT BITE NONVENOMOUS OF FACE NECK AND SCALP EXCEPT EYE WITHOUT INFECTION 07/01/2012 HELLWIG PATIENT REGISTRAR, YENIFER E 910.4 INSECT BITE NONVENOMOUS OF FACE NECK AND SCALP EXCEPT EYE WITHOUT INFECTION 07/01/2012 RILEY DO, BRENDA K 910.4 INSECT BITE NONVENOMOUS OF FACE NECK AND SCALP EXCEPT EYE WITHOUT INFECTION 07/01/2012 CARRILLO STALEY 910.4 INSECT BITE NONVENOMOUS OF FACE NECK AND SCALP EXCEPT EYE WITHOUT INFECTION 07/01/2012 RILEY DO, BRENDA K 910.4 INSECT BITE NONVENOMOUS OF FACE NECK AND SCALP EXCEPT EYE WITHOUT INFECTION 07/01/2012 RILEY DO, BRENDA K 910.4 INSECT BITE NONVENOMOUS OF FACE NECK AND SCALP EXCEPT EYE WITHOUT INFECTION 07/01/2012 KRISTAL TELLO, MICHELLE E 910.4 INSECT BITE NONVENOMOUS OF FACE NECK AND SCALP EXCEPT EYE WITHOUT INFECTION 07/01/2012 KRISTAL TELLO, MICHELLE E 910.4 INSECT BITE NONVENOMOUS OF FACE NECK AND SCALP EXCEPT EYE WITHOUT INFECTION 07/01/2012 KRISTAL TELLO, MICHELLE E 910.4 INSECT BITE NONVENOMOUS OF FACE NECK AND SCALP EXCEPT EYE WITHOUT INFECTION 07/01/2012 KRISTAL TELLO, MICHELLE E 910.4 INSECT BITE NONVENOMOUS OF FACE NECK AND SCALP EXCEPT EYE WITHOUT INFECTION 07/01/2012 RILEY DO, BRENDA K 910.4 INSECT BITE NONVENOMOUS OF FACE NECK AND SCALP EXCEPT EYE WITHOUT INFECTION 07/01/2012 HELLWIG PATIENT REGISTRAR, YENIFER E 910.4 INSECT BITE NONVENOMOUS OF FACE NECK AND SCALP EXCEPT EYE WITHOUT INFECTION 07/01/2012 RILEY DO, BRENDA K 910.4 INSECT BITE NONVENOMOUS OF FACE NECK AND SCALP EXCEPT EYE WITHOUT INFECTION 07/01/2012 KRISTAL TELLO, MICHELLE E 910.4 INSECT BITE NONVENOMOUS OF FACE NECK AND SCALP EXCEPT EYE WITHOUT INFECTION 07/01/2012 RILEY , BRENDA K 910.4 INSECT BITE NONVENOMOUS OF FACE NECK AND SCALP EXCEPT EYE WITHOUT INFECTION 07/01/2012 KRISTAL TELLO, MICHELLE E 910.4 INSECT BITE NONVENOMOUS OF FACE NECK AND SCALP EXCEPT EYE WITHOUT INFECTION 07/01/2012 KRISTAL TELLO, MICHELLE E 910.4 INSECT BITE NONVENOMOUS OF FACE NECK AND SCALP EXCEPT EYE WITHOUT INFECTION 07/01/2012 KRISTAL TELLO, MICHELLE E 910.4 INSECT BITE NONVENOMOUS OF FACE NECK AND SCALP EXCEPT EYE WITHOUT INFECTION 07/21/2012 477.9 RHINITIS 07/21/2012 477.9 RHINITIS 07/21/2012 RILEY DO, BRENDA K 477.9 RHINITIS 07/21/2012 IFEANYI CASTILLO APRN 477.9 RHINITIS 07/21/2012 RLIEY DO, BRENDA K 477.9 RHINITIS 07/21/2012 IFEANYI CASTILLO APRN 477.9 RHINITIS 07/21/2012 IFEANYI CASTILLO APRN 477.9 RHINITIS 07/21/2012 RILEY DO, BRENDA K 477.9 RHINITIS 07/21/2012 YENIFER HUMMEL APRN E 477.9 RHINITIS 07/21/2012 YENIFER HUMMEL APRN E 477.9 RHINITIS 07/21/2012 RILEY DO, BRENDA K 477.9 RHINITIS 07/21/2012 CARRILLO STALEY 477.9 RHINITIS 07/21/2012 RILEY DOCAROL ANNA K 477.9 RHINITIS 07/21/2012 RILEY DO BRENDA K 477.9 RHINITIS 07/21/2012 KRISTAL TELLO, MICHELLE E 477.9 RHINITIS 07/21/2012 KRISTAL TELLO, MICHELLE E 477.9 RHINITIS 07/21/2012 MICHELLE GIRALDO RN E 477.9 RHINITIS 07/21/2012 KRISTAL TELLO, MICHELLE E 477.9 RHINITIS 07/21/2012 RILEY DO, BRENDA K 477.9 RHINITIS 07/21/2012 ROELLYENIFER HUITRON APRN E 477.9 RHINITIS 07/21/2012 RILEY CAROL ANN YOUNGERA K 477.9 RHINITIS 07/21/2012 KRISTAL TELLO, MICHELLE E 477.9 RHINITIS 07/21/2012 RILEY DO, BRENDA K 477.9 RHINITIS 07/21/2012 KRISTAL RN, MICHELLE E 477.9 RHINITIS 07/21/2012 KRISTAL TELLO, MICHELLE E 477.9 RHINITIS 07/21/2012 KRISTAL TELLO, MICHELLE E 477.9 RHINITIS 07/24/2012 382.00 OTITIS MEDIA ACUTE SUPPURATIVE 07/24/2012 477.0 ALLERGIC RHINITIS DUE TO POLLEN 07/24/2012 382.00 OTITIS MEDIA ACUTE SUPPURATIVE 07/24/2012 477.0 ALLERGIC RHINITIS DUE TO POLLEN 07/24/2012 RILEY DO, BRENDA K 382.00 OTITIS MEDIA ACUTE SUPPURATIVE 07/24/2012 RILEY DO, BRENDA K 477.0 ALLERGIC RHINITIS DUE TO POLLEN 07/24/2012 CASTILLO PATIENT REGISTRAR, IFEANYI R 382.00 OTITIS MEDIA ACUTE SUPPURATIVE 07/24/2012 CASTILLO PATIENT REGISTRAR, IFEANYI R 477.0 ALLERGIC RHINITIS DUE TO POLLEN 07/24/2012 RILEY DOCAROL ANNA K 382.00 OTITIS MEDIA ACUTE SUPPURATIVE 07/24/2012 CAROL ANN RILEY DOA K 477.0 ALLERGIC RHINITIS DUE TO POLLEN 07/24/2012 CASTILLO PATIENT REGISTRAR, IFEANYI R 382.00 OTITIS MEDIA ACUTE SUPPURATIVE 07/24/2012 CASTILLO PATIENT REGISTRAR, IFEANYI R 477.0 ALLERGIC RHINITIS DUE TO POLLEN 07/24/2012 CASTILLO PATIENT REGISTRAR, IFEANYI R 382.00 OTITIS MEDIA ACUTE SUPPURATIVE 07/24/2012 CASTILLO PATIENT REGISTRAR, IFEANYI R 477.0 ALLERGIC RHINITIS DUE TO POLLEN 07/24/2012 RILEY DO, BRENDA K 382.00 OTITIS MEDIA ACUTE SUPPURATIVE 07/24/2012 RILEY DO, BRENDA K 477.0 ALLERGIC RHINITIS DUE TO POLLEN 07/24/2012 HELLWIG PATIENT REGISTRAR, YENIFER E 382.00 OTITIS MEDIA ACUTE SUPPURATIVE 07/24/2012 HELLWIG PATIENT REGISTRAR, YENIFER E 477.0 ALLERGIC RHINITIS DUE TO POLLEN 07/24/2012 HELLWIG PATIENT REGISTRAR, YENIFER E 382.00 OTITIS MEDIA ACUTE SUPPURATIVE 07/24/2012 HELLWIG PATIENT REGISTRAR, YENIFER E 477.0 ALLERGIC RHINITIS DUE TO POLLEN 07/24/2012 RILEY DO, BRENDA K 382.00 OTITIS MEDIA ACUTE SUPPURATIVE 07/24/2012 RILEY DO, BRENDA K 477.0 ALLERGIC RHINITIS DUE TO POLLEN 07/24/2012 CHRISTIN LCMF, CARRILLO W 382.00 OTITIS MEDIA ACUTE SUPPURATIVE 07/24/2012 CHRISTIN KEMPMF, CARRILLO W 477.0 ALLERGIC RHINITIS DUE TO POLLEN 07/24/2012 RILEY DO, BRENDA K 382.00 OTITIS MEDIA ACUTE SUPPURATIVE 07/24/2012 RILEY DO, BRENDA K 477.0 ALLERGIC RHINITIS DUE TO POLLEN 07/24/2012 RILEY DO, BRENDA K 382.00 OTITIS MEDIA ACUTE SUPPURATIVE 07/24/2012 RILEY DO, BRENDA K 477.0 ALLERGIC RHINITIS DUE TO POLLEN 07/24/2012 KRISTAL TELLO, MICHELLE E 382.00 OTITIS MEDIA ACUTE SUPPURATIVE 07/24/2012 KRISTAL TELLO, MICHELLE E 477.0 ALLERGIC RHINITIS DUE TO POLLEN 07/24/2012 KRISTAL TELLO, MICHELLE E 382.00 OTITIS MEDIA ACUTE SUPPURATIVE 07/24/2012 KRISTAL TELLO, MICHELLE E 477.0 ALLERGIC RHINITIS DUE TO POLLEN 07/24/2012 KRISTAL TELLO, MCIHELLE E 382.00 OTITIS MEDIA ACUTE SUPPURATIVE 07/24/2012 KRISTAL TELLO, MICHELLE E 477.0 ALLERGIC RHINITIS DUE TO POLLEN 07/24/2012 KRISTAL TELLO, MICHELLE E 382.00 OTITIS MEDIA ACUTE SUPPURATIVE 07/24/2012 KRISTAL TELLO, MICHELLE E 477.0 ALLERGIC RHINITIS DUE TO POLLEN 07/24/2012 RILEY DO, BRENDA K 382.00 OTITIS MEDIA ACUTE SUPPURATIVE 07/24/2012 RILEY DO, BRENDA K 477.0 ALLERGIC RHINITIS DUE TO POLLEN 07/24/2012 CAROL ANN HUMMEL APRNSIE E 382.00 OTITIS MEDIA ACUTE SUPPURATIVE 07/24/2012 ROELLELANA MULLIGANN YENIFER E 477.0 ALLERGIC RHINITIS DUE TO POLLEN 07/24/2012 RILEY DO, BRENDA K 382.00 OTITIS MEDIA ACUTE SUPPURATIVE 07/24/2012 RILEY DO, BRENDA K 477.0 ALLERGIC RHINITIS DUE TO POLLEN 07/24/2012 KRISTAL TELLO, MICHELLE E 382.00 OTITIS MEDIA ACUTE SUPPURATIVE 07/24/2012 KRISTAL TELLO, MICHELLE E 477.0 ALLERGIC RHINITIS DUE TO POLLEN 07/24/2012 RILEY DO, BRENDA K 382.00 OTITIS MEDIA ACUTE SUPPURATIVE 07/24/2012 RILEY DO, BRENDA K 477.0 ALLERGIC RHINITIS DUE TO POLLEN 07/24/2012 MICHELLE GIRALDO RN E 382.00 OTITIS MEDIA ACUTE SUPPURATIVE 07/24/2012 MICHELLE GIRALDO RN 477.0 ALLERGIC RHINITIS DUE TO POLLEN 07/24/2012 MICHELLE GIRALDO RN E 382.00 OTITIS MEDIA ACUTE SUPPURATIVE 07/24/2012 MICHELLE GIRALDO RN 477.0 ALLERGIC RHINITIS DUE TO POLLEN 07/24/2012 MICHELLE GIRALDO RN E 382.00 OTITIS MEDIA ACUTE SUPPURATIVE 07/24/2012 MICHELLE GIRALDO RN 477.0 ALLERGIC RHINITIS DUE TO POLLEN 10/08/2012 782.0 DISTURBANCE OF SKIN SENSATION 10/08/2012 RILEY , BRENDA K 782.0 DISTURBANCE OF SKIN SENSATION 10/08/2012 IFEANYI CASTILLO APRN 782.0 DISTURBANCE OF SKIN SENSATION 10/08/2012 RILEY DO, BRENDA K 782.0 DISTURBANCE OF SKIN SENSATION 10/08/2012 IFEANYI CASTILLO APRN 782.0 DISTURBANCE OF SKIN SENSATION 10/08/2012 IFEANYI CASTILLO APRN 782.0 DISTURBANCE OF SKIN SENSATION 10/08/2012 RILEY DO, BRENDA K 782.0 DISTURBANCE OF SKIN SENSATION 10/08/2012 YENIFER HUMMEL APRN E 782.0 DISTURBANCE OF SKIN SENSATION 10/08/2012 YENIFER HUMMEL APRN E 782.0 DISTURBANCE OF SKIN SENSATION 10/08/2012 RILEY DO, BRENDA K 782.0 DISTURBANCE OF SKIN SENSATION 10/08/2012 CARRILLO STALEY 782.0 DISTURBANCE OF SKIN SENSATION 10/08/2012 RILEY DO, BRENDA K 782.0 DISTURBANCE OF SKIN SENSATION 10/08/2012 RILEY DO, BRENDA K 782.0 DISTURBANCE OF SKIN SENSATION 10/08/2012 MICHELLE GIRALDO RN E 782.0 DISTURBANCE OF SKIN SENSATION 10/08/2012 MICHELLE GIRALDO RN 782.0 DISTURBANCE OF SKIN SENSATION 10/08/2012 MICHELLE GIRALDO RN E 782.0 DISTURBANCE OF SKIN SENSATION 10/08/2012 MICHELLE GIRALDO RN E 782.0 DISTURBANCE OF SKIN SENSATION 10/08/2012 RILEY DO, BRENDA K 782.0 DISTURBANCE OF SKIN SENSATION 10/08/2012 YENIFER HUMMEL APRN E 782.0 DISTURBANCE OF SKIN SENSATION 10/08/2012 BRENDA RILEY DO K 782.0 DISTURBANCE OF SKIN SENSATION 10/08/2012 MICHELLE GIRALDO RN E 782.0 DISTURBANCE OF SKIN SENSATION 10/08/2012 BRENDA RILEY DO K 782.0 DISTURBANCE OF SKIN SENSATION 10/08/2012 MICHELLE GIRALDO RN E 782.0 DISTURBANCE OF SKIN SENSATION 10/08/2012 MICHELLE GIRALDO RN E 782.0 DISTURBANCE OF SKIN SENSATION 10/08/2012 MICHELLE GIRALDO RN 782.0 DISTURBANCE OF SKIN SENSATION 10/09/2012 V14.2 PERSONAL HISTORY OF ALLERGY TO SULFONAMIDES 10/09/2012 CAROL ANN RILEY DOA K V14.2 PERSONAL HISTORY OF ALLERGY TO SULFONAMIDES 10/09/2012 IFEANYI CASTILLO APRN V14.2 PERSONAL HISTORY OF ALLERGY TO SULFONAMIDES 10/09/2012 BRENDA RILEY DO K V14.2 PERSONAL HISTORY OF ALLERGY TO SULFONAMIDES 10/09/2012 IFEANYI CASTILLO APRN V14.2 PERSONAL HISTORY OF ALLERGY TO SULFONAMIDES 10/09/2012 IFEANYI CASTILLO APRN V14.2 PERSONAL HISTORY OF ALLERGY TO SULFONAMIDES 10/09/2012 BRENDA RILEY DO K V14.2 PERSONAL HISTORY OF ALLERGY TO SULFONAMIDES 10/09/2012 YENIFER HUMMEL APRN E V14.2 PERSONAL HISTORY OF ALLERGY TO SULFONAMIDES 10/09/2012 YENIFER HUMMEL APRN E V14.2 PERSONAL HISTORY OF ALLERGY TO SULFONAMIDES 10/09/2012 CAROL ANN RILEY DOA K V14.2 PERSONAL HISTORY OF ALLERGY TO SULFONAMIDES 10/09/2012 CARRILLO STALEY V14.2 PERSONAL HISTORY OF ALLERGY TO SULFONAMIDES 10/09/2012 CAROL ANN RILEY DOA K V14.2 PERSONAL HISTORY OF ALLERGY TO SULFONAMIDES 10/09/2012 CAROL ANN RILEY DOA K V14.2 PERSONAL HISTORY OF ALLERGY TO SULFONAMIDES 10/09/2012 MICHELLE GIRALDO RN E V14.2 PERSONAL HISTORY OF ALLERGY TO SULFONAMIDES 10/09/2012 MICHELLE GIRALDO RN V14.2 PERSONAL HISTORY OF ALLERGY TO SULFONAMIDES 10/09/2012 MICHELLE GIRALDO RN V14.2 PERSONAL HISTORY OF ALLERGY TO SULFONAMIDES 10/09/2012 MICHELLE GIRALDO RN V14.2 PERSONAL HISTORY OF ALLERGY TO SULFONAMIDES 10/09/2012 RILEY DO BRENDA K V14.2 PERSONAL HISTORY OF ALLERGY TO SULFONAMIDES 10/09/2012 YENIFER HUMMEL APRN V14.2 PERSONAL HISTORY OF ALLERGY TO SULFONAMIDES 10/09/2012 ROSEMARY YOUNGER, BRENDA K V14.2 PERSONAL HISTORY OF ALLERGY TO SULFONAMIDES 10/09/2012 MICHELLE GIRALDO RN V14.2 PERSONAL HISTORY OF ALLERGY TO SULFONAMIDES 10/09/2012 ROSEMARY CAROL ANN YOUNGERA K V14.2 PERSONAL HISTORY OF ALLERGY TO SULFONAMIDES 10/09/2012 MICHELLE GIRALDO RN V14.2 PERSONAL HISTORY OF ALLERGY TO SULFONAMIDES 10/09/2012 MICHELLE GIRALDO RN V14.2 PERSONAL HISTORY OF ALLERGY TO SULFONAMIDES 10/09/2012 MICHELLE GIRALDO RN V14.2 PERSONAL HISTORY OF ALLERGY TO SULFONAMIDES 12/16/2012 ROSEMARY YOUNGER, BRENDA K 784.0 HEADACHE 12/16/2012 IFEANYI CASTILLO APRN R 784.0 HEADACHE 12/16/2012 RILEY CAROL ANN YOUNGERA K 784.0 HEADACHE 12/16/2012 IFEANYI CASTILLO APRN 784.0 HEADACHE 12/16/2012 IFEANYI CASTILLO APRN 784.0 HEADACHE 12/16/2012 ROSEMARY YOUNGER, BRENDA K 784.0 HEADACHE 12/16/2012 YENIFER HUMMEL APRN 784.0 HEADACHE 12/16/2012 YEINFER HUMMEL APRN E 784.0 HEADACHE 12/16/2012 ROSEMARY YOUNGER, BRENDA K 784.0 HEADACHE 12/16/2012 CHRISTIN KEMPCARRILLO Eid 784.0 HEADACHE 12/16/2012 RILEY DO, BRENDA K 784.0 HEADACHE 12/16/2012 RILEY DO, BRENDA K 784.0 HEADACHE 12/16/2012 MICHELLE GIRALDO RN 784.0 HEADACHE 12/16/2012 MICHELLE GIRALDO RN 784.0 HEADACHE 12/16/2012 MICHELLE GIRALDO RN E 784.0 HEADACHE 12/16/2012 MICHELLE GIRALDO RN E 784.0 HEADACHE 12/16/2012 RILEY , BRENDA K 784.0 HEADACHE 12/16/2012 YENIFER HUMMEL APRN 784.0 HEADACHE 12/16/2012 RILEY DO, BRENDA K 784.0 HEADACHE 12/16/2012 KRISTAL TELLO, MICHELLE Garrison 784.0 HEADACHE 12/16/2012 RILEY DO, BRENDA K 784.0 HEADACHE 12/16/2012 KRISTAL TELLO, MICHELLE Garrison 784.0 HEADACHE 12/16/2012 KRISTAL TELLO, MICHELLE Garrison 784.0 HEADACHE 12/16/2012 MICHELLE GIRALDO RN 784.0 HEADACHE 12/23/2012 IFEANYI CASTILLO APRN R 783.1 WEIGHT GAIN ABNORMAL 12/23/2012 RILEY DO, BRENDA K 783.1 WEIGHT GAIN ABNORMAL 12/23/2012 CASTILLOIFEANYI TAYLOR APRN R 783.1 WEIGHT GAIN ABNORMAL 12/23/2012 IFEANYI CASTILLO APRN 783.1 WEIGHT GAIN ABNORMAL 12/23/2012 RILEY DO, BRENDA K 783.1 WEIGHT GAIN ABNORMAL 12/23/2012 [facility] 783.1 WEIGHT GAIN ABNORMAL 12/23/2012 ROELYENIFER HUITRON APRN E 783.1 WEIGHT GAIN ABNORMAL 12/23/2012 RILEY DO, BRENDA K 783.1 WEIGHT GAIN ABNORMAL 12/23/2012 CHRISTIN KEMPCARRILLO Eid 783.1 WEIGHT GAIN ABNORMAL 12/23/2012 RILEY DO, BRENDA K 783.1 WEIGHT GAIN ABNORMAL 12/23/2012 RILEY DO, BRENDA K 783.1 WEIGHT GAIN ABNORMAL 12/23/2012 MICHELLE GIRALDO RN 783.1 WEIGHT GAIN ABNORMAL 12/23/2012 MICHELLE GIRALDO RN 783.1 WEIGHT GAIN ABNORMAL 12/23/2012 MICHELLE GIRALDO RN 783.1 WEIGHT GAIN ABNORMAL 12/23/2012 MICHELLE GIRALDO RN E 783.1 WEIGHT GAIN ABNORMAL 12/23/2012 RILEY DO, BRENDA K 783.1 WEIGHT GAIN ABNORMAL 12/23/2012 [facility] E 783.1 WEIGHT GAIN ABNORMAL 12/23/2012 RILEY DO, BRENDA K 783.1 WEIGHT GAIN ABNORMAL 12/23/2012 MICHELLE GIRALDO RN E 783.1 WEIGHT GAIN ABNORMAL 12/23/2012 RILEY DO, BRENDA K 783.1 WEIGHT GAIN ABNORMAL 12/23/2012 MICHELLE GIRALDO RN 783.1 WEIGHT GAIN ABNORMAL 12/23/2012 GIRALDO RN, MICHELLE E 783.1 WEIGHT GAIN ABNORMAL 12/23/2012 KRISTAL TELLO, MICHELLE E 783.1 WEIGHT GAIN ABNORMAL 01/29/2013 RILEY DO, BRENDA K 790.29 OTHER ABNORMAL GLUCOSE 01/29/2013 CASTILLO IFEANYI CONTRERAS R 790.29 OTHER ABNORMAL GLUCOSE 01/29/2013 CASTILLO IFEANYI CONTRERAS 790.29 OTHER ABNORMAL GLUCOSE 01/29/2013 ROSEMARY YOUNGER, BRENDA K 790.29 OTHER ABNORMAL GLUCOSE 01/29/2013 [facility] 790.29 OTHER ABNORMAL GLUCOSE 01/29/2013 ROELELANA YENIFER CONTRERAS E 790.29 OTHER ABNORMAL GLUCOSE 01/29/2013 RILEY DO, BRENDA K 790.29 OTHER ABNORMAL GLUCOSE 01/29/2013 [facility] OTHER ABNORMAL GLUCOSE 01/29/2013 RILEY DO, BRENDA K 790.29 OTHER ABNORMAL GLUCOSE 01/29/2013 RILEY DO, BRENDA K 790.29 OTHER ABNORMAL GLUCOSE 01/29/2013 KRISTAL TELLO, MICHELLE E 790.29 OTHER ABNORMAL GLUCOSE 01/29/2013 KRISTAL TELLO, MICHELLE E 790.29 OTHER ABNORMAL GLUCOSE 01/29/2013 KRISTAL TELLO, MICHELLE E 790.29 OTHER ABNORMAL GLUCOSE 01/29/2013 KRISTAL TELLO, MICHELLE E 790.29 OTHER ABNORMAL GLUCOSE 01/29/2013 RILEY DO, BRENDA K 790.29 OTHER ABNORMAL GLUCOSE 01/29/2013 YENIFER HUMMEL APRN E 790.29 OTHER ABNORMAL GLUCOSE 01/29/2013 RILEY DO, BRENDA K 790.29 OTHER ABNORMAL GLUCOSE 01/29/2013 KRISTAL TELLO, MICHELLE E 790.29 OTHER ABNORMAL GLUCOSE 01/29/2013 RILEY DO, BRENDA K 790.29 OTHER ABNORMAL GLUCOSE 01/29/2013 KRISTAL TELLO, MICHELLE E 790.29 OTHER ABNORMAL GLUCOSE 01/29/2013 KRISTAL TELLO, MICHELLE E 790.29 OTHER ABNORMAL GLUCOSE 01/29/2013 KRISTAL TELLO, MICHELLE E 790.29 OTHER ABNORMAL GLUCOSE 02/24/2013 IFEANYI CASTILLO APRN 300.00 ANXIETY UNSPEC 02/24/2013 CASTILLOIFEANYI TAYLOR APRN 300.00 ANXIETY UNSPEC 02/24/2013 ROSEMARY YOUNGERBRENDA K 300.00 ANXIETY UNSPEC 02/24/2013 [facility] PATIENT REGISTRAR, EYNIFER E 300.00 ANXIETY UNSPEC 02/24/2013 YENIFER HUMMEL APRN E 300.00 ANXIETY UNSPEC 02/24/2013 RILEY DO, BRENDA K 300.00 ANXIETY UNSPEC 02/24/2013 CARRILLO STALEY 300.00 ANXIETY UNSPEC 02/24/2013 RILEY DO, BRENDA K 300.00 ANXIETY UNSPEC 02/24/2013 RILEY DO, BRENDA K 300.00 ANXIETY UNSPEC 02/24/2013 KRISTAL TELLO, MICHELLE Garrison 300.00 ANXIETY UNSPEC 02/24/2013 KRISTAL TELLO, MICHELLE Garrison 300.00 ANXIETY UNSPEC 02/24/2013 KRISTAL TELLO, MICHELLE Garrison 300.00 ANXIETY UNSPEC 02/24/2013 KRISTAL TELLO, MICHELLE Garrison 300.00 ANXIETY UNSPEC 02/24/2013 RILEY DO, BRENDA K 300.00 ANXIETY UNSPEC 02/24/2013 YENIFER HUMMEL APRN E 300.00 ANXIETY UNSPEC 02/24/2013 RILEY DO, BRENDA K 300.00 ANXIETY UNSPEC 02/24/2013 KRISTAL TELLO, MICHELLE Garrison 300.00 ANXIETY UNSPEC 02/24/2013 RILEY DO, BRENDA K 300.00 ANXIETY UNSPEC 02/24/2013 KRISTAL TELLO, MICHELLE Garrison 300.00 ANXIETY UNSPEC 02/24/2013 KRISTAL TELLO, MICHELLE Garrison 300.00 ANXIETY UNSPEC 02/24/2013 KRISTAL TELLO, MICHELLE Garrison 300.00 ANXIETY UNSPEC 07/27/2013 YENIFER HUMMEL APRN 727.43 GANGLION UNSPECIFIED 07/27/2013 YENIFER HUMMEL APRN 727.43 GANGLION UNSPECIFIED 07/27/2013 RILEY DO, BRENDA K 727.43 GANGLION UNSPECIFIED 07/27/2013 CARRILLO STALEY 727.43 GANGLION UNSPECIFIED 07/27/2013 RILEY DO, BRENDA K 727.43 GANGLION UNSPECIFIED 07/27/2013 RILEY DO, BRENDA K 727.43 GANGLION UNSPECIFIED 07/27/2013 MICHELLE GIRALDO RN 727.43 GANGLION UNSPECIFIED 07/27/2013 MICHELLE GIRALDO RN 727.43 GANGLION UNSPECIFIED 07/27/2013 MICHELLE GIRALDO RN 727.43 GANGLION UNSPECIFIED 07/27/2013 MICHELLE GIRALDO RN 727.43 GANGLION UNSPECIFIED 07/27/2013 RILEY DO, BRENDA K 727.43 GANGLION UNSPECIFIED 07/27/2013 YENIFER HUMMEL APRN 727.43 GANGLION UNSPECIFIED 07/27/2013 BRENDA RILEY DO 727.43 GANGLION UNSPECIFIED 07/27/2013 KRISTAL TELLO, MICHELLE E 727.43 GANGLION UNSPECIFIED 07/27/2013 BRENDA RILEY DO 727.43 GANGLION UNSPECIFIED 07/27/2013 KRISTAL TELLO, MICHELLE E 727.43 GANGLION UNSPECIFIED 07/27/2013 KRISTAL TELLO, MICHELLE E 727.43 GANGLION UNSPECIFIED 07/27/2013 KRISTAL TELLO, MICHELLE E 727.43 GANGLION UNSPECIFIED 10/07/2013 [facility], CARRILLO Chapman 296.50 BIPOLAR I DISORDER MOST RECENT EPISODE (OR CURRENT) DEPRESSED UNSPECIFIED 10/07/2013 BRENDA RILEY DO 296.50 BIPOLAR I DISORDER MOST RECENT EPISODE (OR CURRENT) DEPRESSED UNSPECIFIED 10/07/2013 BRENDA RILEY DO 296.50 BIPOLAR I DISORDER MOST RECENT EPISODE (OR CURRENT) DEPRESSED UNSPECIFIED 10/07/2013 MICHELLE GIRALDO RN E 296.50 BIPOLAR I DISORDER MOST RECENT EPISODE (OR CURRENT) DEPRESSED UNSPECIFIED 10/07/2013 MICHELLE GIRALDO RN E 296.50 BIPOLAR I DISORDER MOST RECENT EPISODE (OR CURRENT) DEPRESSED UNSPECIFIED 10/07/2013 MICHELLE GIRALDO RN E 296.50 BIPOLAR I DISORDER MOST RECENT EPISODE (OR CURRENT) DEPRESSED UNSPECIFIED 10/07/2013 MICHELLE GIRALDO RN E 296.50 BIPOLAR I DISORDER MOST RECENT EPISODE (OR CURRENT) DEPRESSED UNSPECIFIED 10/07/2013 BRENDA RILEY DO 296.50 BIPOLAR I DISORDER MOST RECENT EPISODE (OR CURRENT) DEPRESSED UNSPECIFIED 10/07/2013 YENIFER HUMMEL APRN 296.50 BIPOLAR I DISORDER MOST RECENT EPISODE (OR CURRENT) DEPRESSED UNSPECIFIED 10/07/2013 BRENDA RILEY DO 296.50 BIPOLAR I DISORDER MOST RECENT EPISODE (OR CURRENT) DEPRESSED UNSPECIFIED 10/07/2013 MICHELLE GIRALDO RN E 296.50 BIPOLAR I DISORDER MOST RECENT EPISODE (OR CURRENT) DEPRESSED UNSPECIFIED 10/07/2013 BRENDA RILEY DO 296.50 BIPOLAR I DISORDER MOST RECENT EPISODE (OR CURRENT) DEPRESSED UNSPECIFIED 10/07/2013 MICHELLE GIRALDO RN E 296.50 BIPOLAR I DISORDER MOST RECENT EPISODE (OR CURRENT) DEPRESSED UNSPECIFIED 10/07/2013 MICHELLE GIRALDO RN 296.50 BIPOLAR I DISORDER MOST RECENT EPISODE (OR CURRENT) DEPRESSED UNSPECIFIED 10/07/2013 MICHELLE GIRALDO RN 296.50 BIPOLAR I DISORDER MOST RECENT EPISODE (OR CURRENT) DEPRESSED UNSPECIFIED 10/12/2013 CHRISTIN BRENDA CARRILLO Adela 296.33 MO DEPRESSIVE RECURRENT SEVERE W/O PSYCHOTIC BEHAVIOR 10/12/2013 BRENDA RILEY DO 296.33 MO DEPRESSIVE RECURRENT SEVERE W/O PSYCHOTIC BEHAVIOR 10/12/2013 BRENDA RILEY DO 296.33 MO DEPRESSIVE RECURRENT SEVERE W/O PSYCHOTIC BEHAVIOR 10/12/2013 MICHELLE GIRALDO RN 296.33 MO DEPRESSIVE RECURRENT SEVERE W/O PSYCHOTIC BEHAVIOR 10/12/2013 MICHELLE GIRALDO RN 296.33 MO DEPRESSIVE RECURRENT SEVERE W/O PSYCHOTIC BEHAVIOR 10/12/2013 MICHELLE GIRALDO RN 296.33 MO DEPRESSIVE RECURRENT SEVERE W/O PSYCHOTIC BEHAVIOR 10/12/2013 MICHELLE GIRALDO RN 296.33 MO DEPRESSIVE RECURRENT SEVERE W/O PSYCHOTIC BEHAVIOR 10/12/2013 BRENDA RILEY DO 296.33 MO DEPRESSIVE RECURRENT SEVERE W/O PSYCHOTIC BEHAVIOR 10/12/2013 YENIFER HUMMEL APRN 296.33 MO DEPRESSIVE RECURRENT SEVERE W/O PSYCHOTIC BEHAVIOR 10/12/2013 BRENDA RILEY DO 296.33 MO DEPRESSIVE RECURRENT SEVERE W/O PSYCHOTIC BEHAVIOR 10/12/2013 MICHELLE GIRALDO RN 296.33 MO DEPRESSIVE RECURRENT SEVERE W/O PSYCHOTIC BEHAVIOR 10/12/2013 BRENDA RILEY DO 296.33 MO DEPRESSIVE RECURRENT SEVERE W/O PSYCHOTIC BEHAVIOR 10/12/2013 MICHELLE GIRALDO RN 296.33 MO DEPRESSIVE RECURRENT SEVERE W/O PSYCHOTIC BEHAVIOR 10/12/2013 MICHELLE GIRALDO RN 296.33 MO DEPRESSIVE RECURRENT SEVERE W/O PSYCHOTIC BEHAVIOR 10/12/2013 MICHELLE GIRALDO RN 296.33 MO DEPRESSIVE RECURRENT SEVERE W/O PSYCHOTIC BEHAVIOR 11/02/2013 BRENDA RILEY DO 296.30 MO DEPRESSIVE RECURRENT UNSPECIFIED 11/02/2013 MICHELLE GIRALDO RN 296.30 MO DEPRESSIVE RECURRENT UNSPECIFIED 11/02/2013 MICHELLE GIRALDO RN 296.30 MO DEPRESSIVE RECURRENT UNSPECIFIED 11/02/2013 MICHELLE GIRALDO RN 296.30 MO DEPRESSIVE RECURRENT UNSPECIFIED 11/02/2013 MICHELLE GIRALDO RN 296.30 MO DEPRESSIVE RECURRENT UNSPECIFIED 11/02/2013 RILEY DO, BRENDA K 296.30 MO DEPRESSIVE RECURRENT UNSPECIFIED 11/02/2013 YENIFER HUMMEL APRN 296.30 MO DEPRESSIVE RECURRENT UNSPECIFIED 11/02/2013 BRENDA RILEY DO K 296.30 MO DEPRESSIVE RECURRENT UNSPECIFIED 11/02/2013 MICHELLE GIRALDO RN 296.30 MO DEPRESSIVE RECURRENT UNSPECIFIED 11/02/2013 BRENDA RILEY DO K 296.30 MO DEPRESSIVE RECURRENT UNSPECIFIED 11/02/2013 MICHELLE GIRALDO RN 296.30 MO DEPRESSIVE RECURRENT UNSPECIFIED 11/02/2013 MICHELLE GIRALDO RN 296.30 MO DEPRESSIVE RECURRENT UNSPECIFIED 11/02/2013 MICHELLE GIRALDO RN 296.30 MO DEPRESSIVE RECURRENT UNSPECIFIED 11/11/2013 MICHELLE GIRALDO RN 296.20 MAJOR DEPRESSIVE AFFECTIVE DISORDER SINGLE EPISODE UNSPECIFIED DEGREE 11/11/2013 MICHELLE GIRALDO RN 296.20 MAJOR DEPRESSIVE AFFECTIVE DISORDER SINGLE EPISODE UNSPECIFIED DEGREE 11/11/2013 MICHELLE GIRALDO RN 296.20 MAJOR DEPRESSIVE AFFECTIVE DISORDER SINGLE EPISODE UNSPECIFIED DEGREE 11/11/2013 BRENDA RILEY DO K 296.20 MAJOR DEPRESSIVE AFFECTIVE DISORDER SINGLE EPISODE UNSPECIFIED DEGREE 11/11/2013 YENIFER HUMMEL APRN 296.20 MAJOR DEPRESSIVE AFFECTIVE DISORDER SINGLE EPISODE UNSPECIFIED DEGREE 11/11/2013 BRENDA RILEY DO K 296.20 MAJOR DEPRESSIVE AFFECTIVE DISORDER SINGLE EPISODE UNSPECIFIED DEGREE 11/11/2013 MICHELLE GIRALDO RN E 296.20 MAJOR DEPRESSIVE AFFECTIVE DISORDER SINGLE EPISODE UNSPECIFIED DEGREE 11/11/2013 BRENDA RILEY DO K 296.20 MAJOR DEPRESSIVE AFFECTIVE DISORDER SINGLE EPISODE UNSPECIFIED DEGREE 11/11/2013 MICHELLE GIRALDO RN 296.20 MAJOR DEPRESSIVE AFFECTIVE DISORDER SINGLE EPISODE UNSPECIFIED DEGREE 11/11/2013 MICHELLE GIRALDO RN 296.20 MAJOR DEPRESSIVE AFFECTIVE DISORDER SINGLE EPISODE UNSPECIFIED DEGREE 11/11/2013 MICHELLE GIRALDO RN 296.20 MAJOR DEPRESSIVE AFFECTIVE DISORDER SINGLE EPISODE UNSPECIFIED DEGREE 02/19/2014 YENIFER HUMMEL APRN V65.3 DIETARY SURVEILLANCE AND COUNSELING 02/19/2014 BRENDA RILEY DO V65.3 DIETARY SURVEILLANCE AND COUNSELING 02/19/2014 MICHELLE GIRALDO RN V65.3 DIETARY SURVEILLANCE AND COUNSELING 02/19/2014 BRENDA RILEY DO V65.3 DIETARY SURVEILLANCE AND COUNSELING 02/19/2014 MICHELLE GIRALDO RN V65.3 DIETARY SURVEILLANCE AND COUNSELING 02/19/2014 MICHELLE GIRALDO RN V65.3 DIETARY SURVEILLANCE AND COUNSELING 02/19/2014 MICHELLE GIRALDO RN V65.3 DIETARY SURVEILLANCE AND COUNSELING 04/13/2014 BRENDA RILEY DO 724.1 PAIN IN THORACIC SPINE 04/13/2014 MICHELLE GIRALDO RN 724.1 PAIN IN THORACIC SPINE 04/13/2014 MICHELLE GIRALDO RN 724.1 PAIN IN THORACIC SPINE 04/13/2014 MICHELLE GIRALDO RN 724.1 PAIN IN THORACIC SPINE 06/17/2014 Ot 625.9 06/17/2014 Ot 626.8 02/25/2015 Ot 625.9 02/25/2015 Ot 626.8 03/14/2015 YENIFER HUMMEL APRN Ot M54.12 02/21/2017 Ot 625.9 FEM GENITAL SYMPTOMS NOS 02/21/2017 Ot 626.8 MENSTRUAL DISORDER NEC 02/21/2017 YENIFER HUMMEL APRN Ot M54.12 RADICULOPATHY, CERVICAL REGION 03/08/2017 AALIYAH WEBER Ot N93.0 POSTCOITAL AND CONTACT BLEEDING 05/28/2017 Ot 625.9 FEM GENITAL SYMPTOMS NOS 05/28/2017 Ot 626.8 MENSTRUAL DISORDER NEC 05/28/2017 YENIFER HUMMEL APRN Ot M54.12 RADICULOPATHY, CERVICAL REGION 05/28/2017 AALIYAH WEBER Ot N93.0 POSTCOITAL AND CONTACT BLEEDING 05/28/2017 IFEANYI EISENBERG DO Ot N92.0 EXCESSIVE AND FREQUENT MENSTRUATION WITH 05/28/2017 IFEANYI EISENBERG DO Ot Z01.818 ENCOUNTER FOR OTHER PREPROCEDURAL EXAMIN 05/28/2017 IFEANYI EISENBERG DO Ot N92.0 EXCESSIVE AND FREQUENT MENSTRUATION WITH 05/28/2017 IFEANYI EISENBERG DO Ot Z01.818 ENCOUNTER FOR OTHER PREPROCEDURAL EXAMIN Procedures Code [place] [address] ROUTINE VENIPUNCTURE 12/23/2012 68272 CBC 12/23/2012 61202 CMP 12/23/2012 8136758 GFR CALC (RESULT ONLY) 12/23/2012 56207 TSH 12/23/2012 62923 GLUCOSE FINGER STICK 01/29/2013 44143 A1C (IN-HOUSE) 01/29/2013 CHERYL COBIANRADHAON 07/27/2013 25584 PSYCH DIAGNOSTIC EVALUATION 10/13/2013 10420 PSYTX PT&/FAMILY 30 MINUTES 11/02/2013 S0280 COMPREHENSIVE CARE MANAGEMENT 11/18/2013 S0280 HEALTH PROMOTION 12/04/2013 S0281 CARE COORDINATION 12/04/2013 S0281 CARE COORDINATION 12/22/2013 S0281 REFERRAL TO COMMUNITY AND SOCIAL SUPPORT SERVICES 01/15/2014 S0281 REFERRAL TO COMMUNITY AND SOCIAL SUPPORT SERVICES 02/19/2014 S0280 HEALTH PROMOTION 04/08/2014 S0280 HEALTH PROMOTION 04/27/2014 S0280 HEALTH PROMOTION 07/19/2014 Results There is no data. Encounters ACCT No. Visit Date/Time Discharge Status Pt. Type Provider Facility Loc./Unit Complaint [id number] 06/23/2014 09:30:00 06/23/2014 23:59:59 CLS Outpatient MICHELLE GIRALDO RN [id number] 05/20/2014 17:15:00 05/20/2014 23:59:59 CLS Outpatient MICHELLE GIRALDO RN [id number] 04/19/2014 10:30:00 04/19/2014 23:59:59 CLS Outpatient MICHELLE GIRALDO RN [id number] 04/13/2014 09:38:00 04/13/2014 23:59:59 CLS Outpatient BRENDA RILEY DO [id number] 03/22/2014 08:45:00 03/22/2014 23:59:59 CLS Outpatient MICHELLE GIRALDO RN [id number] 03/22/2014 08:30:00 03/22/2014 23:59:59 CLS Outpatient BRENDA RILEY DO [id number] 02/19/2014 11:24:00 02/19/2014 23:59:59 CLS Outpatient YENIFER HUMMEL APRN [id number] 01/21/2014 11:20:00 01/21/2014 23:59:59 CLS Outpatient BRENDA RILEY DO [id number] 01/07/2014 09:30:00 01/07/2014 23:59:59 CLS Outpatient MICHELLE GIRALDO RN [id number] 12/22/2013 08:45:00 12/22/2013 23:59:59 CLS Outpatient MICHELLE GIRALDO RN [id number] 11/17/2013 09:21:00 11/17/2013 23:59:59 CLS Outpatient MICHELLE GIRALDO RN [id number] 11/16/2013 14:30:00 11/16/2013 23:59:59 CLS Outpatient MICHELLE GIRALDO RN [id number] 11/02/2013 14:13:00 11/02/2013 23:59:59 CLS Outpatient BRENDA RILEY DO [id number] 10/22/2013 15:54:00 10/22/2013 23:59:59 CLS Outpatient BRENDA RILEY DO [id number] 10/12/2013 15:33:00 10/12/2013 23:59:59 [id number] 09/17/2013 15:48:00 09/17/2013 23:59:59 CLS Outpatient BRENDA IRLEY DO [id number] 09/03/2013 15:39:00 09/03/2013 23:59:59 CLS Outpatient YENIFER HUMMEL APRN [id number] 07/27/2013 16:40:00 07/27/2013 23:59:59 [id number] 06/16/2013 08:44:00 06/16/2013 23:59:59 CLS Outpatient BRENDA RILEY DO [id number] 04/23/2013 13:57:00 04/23/2013 23:59:59 CLS Outpatient IFEANYI CASTILLO APRN [id number] 02/24/2013 13:57:00 02/24/2013 23:59:59 CLS Outpatient IFEANYI CASTILLO APRN [id number] 01/29/2013 13:52:00 01/29/2013 23:59:59 CLS Outpatient BRENDA RILEY DO [id number] 12/23/2012 09:54:00 12/23/2012 23:59:59 CLS Outpatient IFEANYI CASTILLO APRN [id number] 12/16/2012 13:41:00 12/16/2012 23:59:59 CLS Outpatient BRENDA RILEY DO [id number] 07/01/2012 14:33:00 07/01/2012 23:59:59 CLS Outpatient [id number] 10/09/2012 13:44:00 Document Registration [id number] 07/24/2012 14:56:00 Document Registration [id number] 05/24/2017 05:38:00 05/24/2017 10:58:00 DIS Outpatient IFEANYI EISENBERG DO [facility] PREOP ABNORMAL UTERINE BLEEDING [id number] 02/21/2017 09:58:00 02/21/2017 23:59:59 CLS Outpatient AALIYAH WEBER [facility] RAD LLQ PAIN [id number] 02/25/2015 07:43:00 02/25/2015 23:59:59 CLS Outpatient YENIFER HUMMEL APRN [facility] RAD CERVICALGIA, RADICULOPATHY CERVIAL REGION [id number] 05/30/2017 09:00:00 PEN Preadmit IFEANYI EISENBERG DO [facility] ABNORMAL UTERINE BLEEDING [id number] 05/24/2014 13:01:00 Document Registration
[2017-05-30] MEDS ORDERED: BUPIVACAINE 0.25% 30 ML (SENSORCAINE) VIAL ONE (07:34)
[2017-05-30] MEDS ORDERED: FAMOTIDINE 20MG/2ML IV (PEPCID) IV ONE (07:45)
[2017-05-30] MEDS: LACTATED RINGERS 1,000 ML IV PRN ×2 (07:50→09:21)
[2017-05-30] MEDS ORDERED: metroNIDAZOLE 500MG/100ML IVPB 100 ML ONE (07:52)
[2017-05-30] MEDS ORDERED: ceFAZolin 2 GM IV Premixed 50 ML ONE (07:52)
[2017-05-30 07:58] LABS: BASOPHILS % (AUTO) 0 % (0-10); EOSINOPHILS # (AUTO) 0.1 10^3/uL (0.0-0.3); EOSINOPHILS % (AUTO) 2 % (0-10); HEMATOCRIT 37 % (35-52); HEMOGLOBIN 12.5 G/DL (11.5-16.0); LYMPHOCYTES # (AUTO) 1.9 X 10^3 (1.0-4.0); LYMPHOCYTES % (AUTO) 30 % (12-44); MEAN CORPUSCULAR HEMOGLOBIN 27 PG (25-34); MEAN CORPUSCULAR HGB CONC 34 G/DL (32-36); MEAN CORPUSCULAR VOLUME 80 FL (80-99); MEAN PLATELET VOLUME 10.3 FL (7.4-10.4); MONOCYTES # (AUTO) 0.4 X 10^3 (0.0-1.0); MONOCYTES % (AUTO) 6 % (0-12); NEUTROPHILS # (AUTO) 3.9 X 10^3 (1.8-7.8); NEUTROPHILS % (AUTO) 62 % (42-75); PLATELET COUNT 208 10^3/uL (130-400); RED BLOOD COUNT 4.62 10^6/uL (4.35-5.85); RED CELL DISTRIBUTION WIDTH 14.4 % (10.0-14.5); WHITE BLOOD COUNT 6.2 10^3/uL (4.3-11.0)
[2017-05-30 08:00] VITALS: BP 161/101
[2017-05-30] MEDS ORDERED: ceFAZolin 2 GM IV Premixed 50 ML IV ONE (08:15)
[2017-05-30] MEDS ORDERED: metroNIDAZOLE 500MG/100ML IVPB 100 ML IV ONE (08:15)
--- NOTE | 2017-05-30 08:32 | Progress Note-Pre Operative ---
Pre-Operative Progress Note H&P Reviewed The H&P was reviewed, patient examined and no changes noted. Date Seen by Provider: May 30, 2017 Time Seen by Provider: 08:13 Date H&P Reviewed: May 30, 2017 Time H&P Reviewed: 08:13 Pre-Operative Diagnosis: AUB, Menorrhagia, Dysmenorrhea IFEANYI EISENBERG DO May 30, 2017 8:32 am
--- NOTE | 2017-05-30 08:34 | Discharge Inst-Women's Service ---
Discharge Inst-Women's Serv Depart Medication/Instructions New, Converted or Re-Newed RX: RX on Chart Consults/Follow Up Additional Follow Up: Yes Orders/Referrals Dr. Rodriguez in 7-10 days and in 8 weeks Activity Activity: Activity as Tolerated Driving Instructions: No Driving for 1 Week NO SMOKING: NO SMOKING Nothing Inside Vagina: No Douching, No Avard, No Tampons Diet Discharge Diet: No Restrictions Symptoms to Report to : Bleeding Excessive, Pain Increased, Fever Over 101 Degrees F, Vaginal Bleeding Increase, Questions/Concerns For Any Problems or Questions: Contact Your Physician Skin/Wound Care Infection Signs and Symptoms: Increased Redness, Foul Odor of Wound, Increased Drainage, Skin Itchy or Has a Rash, Increased Swelling, Temperature Above 101 F Operative Area Clean and Dry: Keep Incision Clean/Dry Stitches/Yulisa/Dermabond: Dermabond, Care of Stitches Bathing Instructions: IFEANYI Saini DO May 30, 2017 08:34
[2017-05-30] MEDS ORDERED: HYDR-34 PO (08:43)
[2017-05-30] MEDS ORDERED: DOCU100C37 PO (08:43)
[2017-05-30] MEDS ORDERED: SIME80TA16 PO (08:43)
[2017-05-30] MEDS ORDERED: IBUP-1773 PO (08:43)
[2017-05-30] MEDS ORDERED: ANTACID SUSP 30 ML UDC (MYLANTA) PO PRN (08:45)
[2017-05-30] MEDS ORDERED: ZOLPIDEM 5 MG (AMBIEN) TAB PO PRN (08:45)
[2017-05-30] MEDS ORDERED: DOCUSATE SODIUM 100 MG (COLACE) CAP PO PRN (08:45)
[2017-05-30] MEDS ORDERED: ONDANSETRON 4 MG/2 ML (SDV) Z0FRAN IV PRN (08:45)
[2017-05-30] MEDS ORDERED: SIMETHICONE 80 MG (MYLICON) CHEW PO PRN (08:45)
[2017-05-30] MEDS ORDERED: CHLORASEPTIC LOZENGE MM PRN (08:45)
[2017-05-30] MEDS ORDERED: morphine INJ 10 MG/ML 1ML (SYR OR VIAL) ONE ×2 (09:51→10:03)
[2017-05-30] MEDS ORDERED: proPOfol 200 MG/20 ML (DIPRIVAN) VIAL IV ONE (09:52)
[2017-05-30] MEDS ORDERED: SEVOFLURANE (ULTANE) 15 ML INHAL SOLN ONE (09:52)
[2017-05-30] MEDS ORDERED: ROCURONIUM 10 MG/ML 5 ML SYRINGE IV ONE (09:52)
[2017-05-30] MEDS ORDERED: DEXAMETHASONE 10 MG/ML (DECADRON) 1 ML VIAL ONE (09:52)
[2017-05-30] MEDS ORDERED: LIDOCAINE PF 2% 5 ML (XYLOCAINE) VIAL ONE (09:52)
[2017-05-30] MEDS: KETOROLAC 30 MG/ML VIAL IV PRN ×3 (09:55→23:50)
[2017-05-30] MEDS ORDERED: NEOSTIGMINE 1 MG/ML 5 ML SYRINGE ONE (09:57)
[2017-05-30] MEDS ORDERED: GLYCOPYRROLATE 0.2 MG/ML (ROBINUL) 2 ML VIAL ONE (09:57)
[2017-05-30] MEDS ORDERED: ONDANSETRON 4 MG/2 ML (SDV) Z0FRAN IVP PRN (10:30)
[2017-05-30] MEDS ORDERED: fentaNYL INJECTION 100 MCG/2 ML AMP IVP PRN (10:30)
[2017-05-30] MEDS ORDERED: HYDROmorphone (DILAUDID) 2 MG/ML VIAL IVP PRN (10:30)
[2017-05-30] MEDS ORDERED: morphine INJ 10 MG/ML 1ML (SYR OR VIAL) IVP PRN (10:30)
[2017-05-30] MEDS: LACTATED RINGERS 1,000 ML IV SCH ×2 (10:54→14:00)
[2017-05-30 11:20] VITALS: BP 148/87
[2017-05-30 13:30] VITALS: BP 152/91
[2017-05-30] MEDS: HYDROcodone/APAP 7.5 MG/325 MG (LORTAB, LORCET PLUS) TABLET PO PRN ×2 (13:50→19:17)
[2017-05-30 15:45] VITALS: BP 147/86
--- NOTE | 2017-05-30 18:19 | OPERATIVE REPORT ---
DATE OF SERVICE: 05/30/2017 PREOPERATIVE DIAGNOSES: 1. A 36-year-old female with severe dysmenorrhea. 2. Abnormal uterine bleeding. 3. Menorrhagia. POSTOPERATIVE DIAGNOSES: 1. A 36-year-old female with severe dysmenorrhea. 2. Abnormal uterine bleeding. 3. Menorrhagia. 4. Extensive peritoneal endometriosis. SURGEON: Osei Rodriguez DO. SPINNING DOFFER: MEHDI Mazariegos. PROCEDURE PERFORMED: Robotic-assisted total laparoscopic hysterectomy with bilateral salpingectomy. ANESTHESIA: General endotracheal. ESTIMATED BLOOD LOSS: 50 mL. URINE OUTPUT: 100 mL clear at the end of the procedure. FLUIDS: 1400 mL of lactated Ringer solution. FINDINGS: A mildly enlarged and hyperemic-appearing uterus with grossly normal left fallopian tube and grossly normal bilateral ovaries. The right fallopian tube is significantly distended and has a darkened appearance around it as well as an endometrioma, which is associated with the right fallopian tube. Scarring of the right adnexa to the round ligament and diffuse peritoneal endometriosis implants including bilateral uterosacral ligaments, bilateral broad ligaments and the vesicouterine peritoneum. SPECIMEN SENT: Uterus, bilateral fallopian tubes, endometriosis, peritoneal implant biopsies. INDICATIONS FOR PROCEDURE: This 36-year-old female patient that was sent to me by our nurse practitioner, Alyce Mejia, for ongoing issues with severe debilitating periods. The patient had undergone in the past 10 years multiple treatment modalities and had become frustrated with the ongoing pain that she was having with her periods. She was also starting to have some pain with intercourse and evaluation revealed no signs of infectious causes or anatomic causes for her pain. I discussed with the patient the possibility of underlying adenomyosis or even endometriosis, but that would not be known until postoperatively or intraoperatively. The patient was ready to proceed with more definitive measures due to ongoing issues and becoming frustrated. Risks of the procedure were discussed with the patient in detail including risk of bleeding, infection, damage to any surrounding structures including but not limited to bowel, bladder, ureters, kidneys, need for possible reoperation if any damaged occur, risk from anesthesia and even . After everything was discussed with the patient in detail, consent was obtained in the preoperative area with her family present and the patient was taken to the operating room. OPERATIVE REPORT IN DETAIL: Once in the operating room, general anesthesia was found to be adequate, placed in dorsal lithotomy position, prepped and draped in normal sterile fashion. A timeout was performed. I then proceeded with placing a Jose catheter using sterile technique. A weighted speculum was inserted to the patient's vagina. A right angle retractor was used to visualize the cervix, which was grasped at 12 o'clock position using a single tooth tenaculum and 0 Vicryl suture was then placed through the tenaculum site and the tenaculum was removed and the Vicryl suture was used as my retraction point. I then gently sound the uterine cavity, depth was found to be 8 cm. I gently dilated the cervix using Hegar dilators to allow placement of the Letty uterine manipulator. I then selected an 8 cm Letty uterine manipulator tip and a 3.5 cm colpotomy ring. Her placed the uterine manipulator tip into the uterus and deployed the balloon and advanced a colpotomy ring around the vaginal fornix. Once this is in place, I performed a change of gloves and took my attention to the abdomen after removing all the instruments from the patient's vagina. At the abdomen, I infiltrated the area below the umbilicus using 0.25% Marcaine and made an 8 mm incision. I directed a Veress needle through this incision until intraperitoneal placement, which was then confirmed using a saline drop test. I then proceeded with insufflation using CO2 gas with opening pressure of 8 mmHg was noted. I proceeded to a maximum pressure of 15 mmHg, at which point I removed the Veress needle and introduced an 8 mm blunt da Bird camera trocar. Once this was in place, I am able to confirm intraperitoneal placement using the da Bird laparoscope. I had the patient placed in steep Trendelenburg and I am able to visualize all the pelvic anatomy that I need in order to proceed with the case. There are some filmy adhesions of the greater omentum to the anterior abdominal wall that are noted at that time as well. I then placed two lateral trocars. These were both 8 mm trocars. The skin was infiltrated using 0.25% Marcaine and 8 mm incisions were made. Once these are in place, I placed the trocars under direct visualization of the laparoscope and brought in the da Bird robot and docked in the appropriate fashion. I placed the vessel sealer in the left hand and monopolar angie in the right hand. I first took down the filmy adhesion using monopolar angie allowing me to access the pelvis completely. I then took down the adhesions of the right adnexa out the round ligament and the fallopian tube. I then performed the following dissection bilaterally. I started at the uteroovarian ligament, bipolar cauterized and transected using vessel sealer. I then created a window in the mesosalpinx. I used bipolar cautery using the vessel sealer and amputated the fallopian tube away from the mesosalpinx. I then grasped the round ligament, bipolar cauterized and transected using the vessel sealer. I then took the vessel sealer down the broad ligament to the level of the lower uterine segment. I the anterior and posterior leaflets of the broad ligament, anteriorly was taken to the anterior vaginal fornix and posteriorly was taken to the posterior vaginal fornix. This allowed me to skeletonize the uterine vessels laterally, which I then bipolar cauterized and transected using the vessel sealer. I then created my colpotomy at 12 o'clock position using monopolar angie and take this circumferentially around the vaginal cuff amputating the cervix away from the vaginal fornix. The entire specimen was then removed through the vagina, at which point I proceeded with closing the vaginal cuff. I closed the lateral vaginal apices of vaginal cuff using 2-0 Vicryl suture in a [id number] fashion, couple suspending them to the uterosacral ligaments. I closed the remainder of the vaginal cuff using 2-0 V-Loc in a running fashion, after which there was no active bleeding noted from any of my dissection planes. I then undocked the da Bird robot and proceeded with remainder of the case laparoscopically. I copiously irrigated the pelvis using normal saline. Once again, there was no active bleeding noted from any of my dissection planes. I placed FloSeal hemostatic agent over all my planes of dissection to ensure excellent postoperative hemostasis and had the patient taken out of steep Trendelenburg. I then, once the patient was flattened out, removed the lateral trocars under direct visualization of the laparoscope. There was no active bleeding from those trocar sites. I then released insufflation through the infraumbilical trocar site and introduced 10 mL of 0.25% Marcaine through this site for postoperative pain management. I then removed the infraumbilical trocar and proceeded with closing the skin using 4-0 Monocryl in interrupted subcuticular stitches. Dermabond was placed on the incision and Band-Aids were placed over these. The patient tolerated the procedure well and sent to recovery in stable condition. Lap and sponge count was correct at the end of procedure, instrument counts correct as well. Two grams of Ancef, 500 mg of Flagyl given preoperatively for infection prophylaxis. Job ID: [id number] DocumentID: [id number] Dictated Date: 05/30/2017 11:02:33 Pipe Processor Date: 05/30/2017 18:19:04 Dictated By: OSEI RODRIGUEZ DO
[2017-05-30 20:30] VITALS: BP 144/92
[2017-05-30 23:50] VITALS: BP 128/85
[2017-05-31] MEDS ORDERED: IBUPROFEN 600 MG (MOTRIN) TAB PO PRN (01:15)
[2017-05-31] MEDS: HYDROcodone/APAP 7.5 MG/325 MG (LORTAB, LORCET PLUS) TABLET PO PRN (03:55)
[2017-05-31 03:59] VITALS: BP 132/89
[2017-05-31 07:52] VITALS: BP 130/82
--- NOTE | 2017-05-31 11:07 | Anesthesia-General Post-Op ---
General Patient Condition Mental Status/LOC: Same as Preop Cardiovascular: Satisfactory Nausea/Vomiting: Absent Respiratory: Satisfactory Pain: Controlled Complications: Absent Post Op Complications Complications None Follow Up Care/Instructions Patient Instructions None needed. Anesthesia/Patient Condition Patient Condition Patient is doing well, no complaints, stable vital signs, no apparent adverse anesthesia problems. No complications reported per nursing. TAISHA LOPEZ CRNA May 31, 2017 11:07
== END 2017-05-31 09:45 | disposition home or self-care (01) ==
LOC: SDC 07:20 → WS 11:10 → SDC 05-31 09:45
PROVIDERS: ATTEND Obstetrics & Gynecology
DX: N94.6 Dysmenorrhea, unspecified (principal); N92.0 Excessive and frequent menstruation with regular cycle; N80.3 Endometriosis of pelvic peritoneum; N80.2 Endometriosis of fallopian tube; N72 Inflammatory disease of cervix uteri; F41.9 Anxiety disorder, unspecified; E66.9 Obesity, unspecified; Z68.41 Body mass index [BMI] 40.0-44.9, adult; Z79.899 Other long term (current) drug therapy
CPT/HCPCS: 36415; 84703; 85025; 86850; 86900; 86901; 87081; 88305; 88307; 94664

== ENCOUNTER 2020-10-20 12:55 | Emergency (ER) | payer MEDICAID, OTHER ==
[~2020-10-20] VITALS: Ht 157.4 cm; Wt 100.6 kg
[~2020-10-20 12:55] MED LIST changes: +DOCU100C37 PO; +HYDR-34 PO; +IBUP-1773 PO; +METF-397 PO; -METF500T4 PO; +SIME80TA16 PO
--- NOTE | 2020-10-20 13:44 | ED General ---
General Chief Complaint: Cough/Cold/Flu Symptoms Stated Complaint: COUGH/SORE THROAT/COVID EXPOSURE Nursing Triage Note: Pt c/o cough, sore throat, chest congestion that began this morning. The pt reports daughter is positive and pt lives with daughter. Source of Information: Patient Exam Limitations: No Limitations History of Present Illness Date Seen by Provider: Oct 20, 2020 Time Seen by Provider: 13:00 Initial Comments This 39-year-old woman presents to the emergency room with complaints of sore throat, cough, chest congestion, and achiness starting today. Her daughter and son-in-law live with her and both have recently tested positive for COVID-19. She has risk factors including obesity and diabetes. Vital signs are stable at this time. She is not in any distress. Allergies and Home Medications Allergies Coded Allergies: Sulfa (Sulfonamide Antibiotics) (Verified Allergy, Mild, HIVES, 05/24/17) fluoxetine (Verified Allergy, Mild, ANXIETY/DEPRESSION, 05/24/17) topiramate (Verified Allergy, Unknown, 05/24/17) Home Medications Aripiprazole 15 Mg Tablet, 15 MG PO DAILY, (Reported) Buspirone HCl 5 Mg Tablet, 5 MG PO BID, (Reported) Cyclobenzaprine HCl 10 Mg Tablet, 10 MG PO DAILY, (Reported) Docusate Sodium 100 Mg Capsule, 100 MG PO BID PRN for CONSTIPATION-1ST LINE Prescribed by: IFEANYI EISENBERG on 05/30/17842 Hydrocodone Bit/Acetaminophen 1 Ea Tablet, 2 EA PO Q6H PRN for Pain-See Instructions Prescribed by: IFEANYI EISENBERG on 05/30/17842 Ibuprofen 600 Mg Tablet, 600 MG PO Q6H PRN for PAIN-MODERATE Prescribed by: IFEANYI EISENBERG on 05/30/17842 Medroxyprogesterone Acetate 10 Mg Tablet, 10 MG PO DAILY, (Reported) Metformin HCl 500 Mg Tablet, 1,000 MG PO DAILY, (Reported) Phentermine HCl 37.5 Mg Capsule, 37.5 MG PO DAILY, (Reported) Sertraline HCl 100 Mg Tablet, 150 MG PO DAILY, (Reported) Simethicone 80 Mg Tab.chew, 40 MG PO TID PRN for INDIGESTION 2ND LINE Prescribed by: IFEANYI EISENBERG on 05/30/17842 Patient Home Medication List Home Medication List Reviewed: Yes Review of Systems Review of Systems Constitutional: see HPI EENTM: see HPI Respiratory: see HPI Cardiovascular: no symptoms reported Gastrointestinal: no symptoms reported Genitourinary: no symptoms reported : No Musculoskeletal: see HPI Skin: no symptoms reported Psychiatric/Neurological: No Symptoms Reported Hematologic/Lymphatic: No Symptoms Reported Immunological/Allergic: no symptoms reported Past Czlogms-Mpgzhl-Wkgakp Hx Patient Social History Tobacco Use?: No Use of E-Cig and/or Vaping dev: No Substance use?: No Alcohol Use?: No Pt feels they are or have been: No Seasonal Allergies Seasonal Allergies: No Past Medical History Surgeries: Yes Gallbladder Respiratory: No Cardiac: No Neurological: No : No Reproductive Disorders: Yes (AUB) Female Reproductive Disorders: Menstrual Problems, Ovarian Cyst Sexually Transmitted Disease: No HIV/AIDS: No Gastrointestinal: Yes Gastroesophageal Reflux, Irritable Bowel Musculoskeletal: No Endocrine: Yes Diabetes, Non-Insulin dep HEENT: No Loss of Vision: Bilateral Hearing Impairment: Denies Cancer: No Psychosocial: Yes Anxiety, Depression Adverse Reaction/Blood Tranf: No Physical Exam Vital Signs Vital Signs - First Documented 10/20/20 13:19 Pulse 97 Resp 16 B/P (MAP) 152/88 (109) Pulse Ox 99 O2 Delivery Room Air Capillary Refill : Less Than 3 Seconds Height, Weight, BMI Height: 5'2.50" Weight: 233lbs. 0.0oz. 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 Norm as Tested, Other (Mildly anxious) Skin: Normal Color, Warm/Dry Progress/Results/Core Measures Suspected Sepsis SIRS Temperature: Pulse: 97 Respiratory Rate: 16 Blood Pressure 152 /88 Mean: 109 Results/Orders Lab Results Laboratory Tests Test 10/20/20 13:30 Range/Units Influenza Type A (RT-PCR) Not Detected Not Detecte Influenza Type B (RT-PCR) Not Detected Not Detecte SARS-CoV-2 RNA (RT-PCR) Detected H Not Detecte My Orders Orders - REGINO SPANN MD Covid 19 Inhouse Test (10/20/20 13:00) Influenza A And B By Pcr (10/20/20 13:00) Vital Signs/I&O 10/20/20 10/20/20 13:19 13:19 Pulse 97 Resp 16 B/P (MAP) 152/88 (109) Pulse Ox 99 O2 Delivery Room Air Room Air Capillary Refill : Less Than 3 Seconds Blood Pressure Mean: 109 Progress Note : Progress Note Patient received the fact sheet for monoclonal antibody therapy. Emergency use authorization was explained to the patient. Patient wished to be considered for the infusion and the order form was completed and sent to the pharmacy. Vital signs were stable and she did not have severe symptoms requiring immediate treatment. Departure Impression Primary Impression: COVID-19 Disposition: 01 HOME, SELF-CARE Condition: Stable Departure-Patient Inst. Decision time for Depature: 13:40 Referrals: [facility] (PCP/Family) Primary Care Physician Patient Instructions: COVID-19 Overview, REGEN-COV (casirivimab and imdevimab) FDA Fact Sheet Add. Discharge Instructions: Your COVID-19 test was positive. Please quarantine for at least 10 days from onset of symptoms and until all of your symptoms have resolved. Close contacts to you also need to quarantine for 10 days after their last contact with you. Drink plenty of clear liquids to stay well-hydrated. Eat a well-balanced diet and take a multivitamin. Some sources suggest taking extra vitamin C, vitamin D, zinc, elderberry, etc. to help boost your immune system during COVID-19. Do not exceed doses on the package instructions. Consider using a pulse oximeter to check your oxygen saturations frequently, especially if you are short of breath. Return to the ER if you have any oxygen saturation below 90% or recurrent oxygen saturations less than 92%. An order has been placed with the pharmacy for monoclonal antibody therapy. You should receive a call from the pharmacy within the next couple of days to schedule an appointment time if you qualify based on your risk and supply available. Call with questions or concerns. Return to care if you have worsening symptoms. All discharge instructions reviewed with patient and/or family. Voiced understanding. REGINO SPANN MD Oct 20, 2020 13:44
[2020-10-20 14:09] VITALS: BP 152/88
== END 2020-10-20 14:09 | disposition home or self-care (01) ==
LOC: EDUNIT# 12:55 → ER 12:56
DX: U07.1 COVID-19 (principal); E66.9 Obesity, unspecified; E11.9 Type 2 diabetes mellitus without complications; F41.9 Anxiety disorder, unspecified; F32.9 Major depressive disorder, single episode, unspecified; Z68.41 Body mass index [BMI] 40.0-44.9, adult; Z79.84 Long term (current) use of oral hypoglycemic drugs; Z79.899 Other long term (current) drug therapy
CPT/HCPCS: 87636; 99282

== ENCOUNTER → 2020-10-24 | Outpatient (CLI) | payer OTHER ==
[~2020-10-24] VITALS: Ht 157 cm; Wt 98.0 kg
[~2020-10-24] MED LIST changes: +CASIRIVIMAB/IMDEVIMAB 1,200 MG in NS (IVPB) 250 ML IV ONE; +EPINEPHrine INJECTION 1 MG/ML AMP IM PRN; +diphenhydrAMINE 50 MG/ML INJ (BENADRYL) IV PRN
[2020-10-24 12:32] VITALS: BP 137/86
[2020-10-24 14:01] VITALS: BP 106/58
[2020-10-24 14:55] VITALS: BP 122/73
== END ==
LOC: INFUSION 12:45
PROVIDERS: ATTEND Family Medicine
DX: Z23 Encounter for immunization (principal); U07.1 COVID-19

== ENCOUNTER 2021-12-25 21:22 | Emergency (ER) | payer OTHER ==
[~2021-12-25 21:22] MED LIST changes: -CASIRIVIMAB/IMDEVIMAB 1,200 MG in NS (IVPB) 250 ML IV ONE; +CYCL10TA25 PO; -CYCL10TA9 PO; -EPINEPHrine INJECTION 1 MG/ML AMP IM PRN; -diphenhydrAMINE 50 MG/ML INJ (BENADRYL) IV PRN
[2021-12-25] MEDS ORDERED: RX-CEPHALEXIN (KEFLEX) 250 MG CAP PPK#4 PO STA (22:10)
[2021-12-25] MEDS ORDERED: TETANUS,DIPTH,PERTUSS P/F (BOOSTRIX) 0.5 ML VIAL IM ONE (22:15)
[2021-12-25] MEDS ORDERED: CEPH500T PO ×2 (22:18→22:34)
--- NOTE | 2021-12-25 22:18 | ED Integumentary General ---
General Chief Complaint: Skin/Wound Problems Stated Complaint: KNOT ON RIGHT LEG Nursing Triage Note: PT ARRIVAL TO ER VIA PRIVATE VEHICLE WITH COMPLAINT OF KNOT ON RIGHT LATERAL CALF AREA. PT STATES THAT SHE NOTICED IT ABOUT 1 HOUR PAN PULLER. SMALL AREA THAT IS SLIGHTLY REDDENED AND SORE TO TOUCH. Source: patient History of Present Illness Date Seen by Provider: Dec 25, 2021 Time Seen by Provider: 22:05 Initial Comments PT ARRIVES VIA POV FROM HOME STATES A COUPLE OF HOURS AGO, SHE NOTICED A SORE RED SPOT ON HER RIGHT LOWER LEG WHEN SHE WAS CHANGING CLOTHES NO KNOWN INJURY DID NOT FEEL OR SEE ANYTHING BITE/STING HER NO OPEN WOUND NO DRAINAGE OR STREAKS NO CALF PAIN NO SWELLING TO LEG. NO FEVER PT WAS AT HER FATHER'S HOUSE TODAY AND HE LIVES ON A FARM, AND WAS OUTSIDE FOR A SHORT PERIOD OF TIME. BUT DID NOT FEEL OR SEE ANYTHING STING/BITE OR POKE HER. PT IS DIABETIC, TAKES TRULICITY AND ORAL MEDICATION PCP: DR. GALICIA WITH [facility] [place] Allergies and Home Medications Allergies Coded Allergies: Sulfa (Sulfonamide Antibiotics) (Verified Allergy, Mild, HIVES, 05/24/17) fluoxetine (Verified Allergy, Mild, ANXIETY/DEPRESSION, 05/24/17) topiramate (Verified Allergy, Unknown, 05/24/17) Patient Home Medication List Home Medication List Reviewed: Yes Aripiprazole (Abilify) 15 Mg Tablet, 15 MG PO DAILY, (Reported) Entered as Reported by: ERICK HADLEY on 05/24/17 1037 Buspirone HCl (Buspirone HCl) 5 Mg Tablet, 5 MG PO BID, (Reported) Entered as Reported by: ERICK HADLEY on 05/24/17 1037 Cephalexin (Cephalexin) 500 Mg Tablet, 500 MG PO QID Prescribed by: QUOC GOEL on 12/25/21 2218 Cyclobenzaprine HCl (Cyclobenzaprine HCl) 10 Mg Tablet, 10 MG PO DAILY, (Reported) Entered as Reported by: ERICK HADLEY on 05/24/17 1037 Docusate Sodium (Docusate Sodium) 100 Mg Capsule, 100 MG PO BID PRN for CONSTIPATION-1ST LINE Prescribed by: IFEANYI EISENBERG on 05/30/17 0843 Hydrocodone Bit/Acetaminophen (Lortab 7.5 Mg Tablet) 1 Ea Tablet, 2 EA PO Q6H PRN for Pain-See Instructions Prescribed by: IFEANYI EISENBERG on 05/30/17842 Ibuprofen (Ibuprofen) 600 Mg Tablet, 600 MG PO Q6H PRN for PAIN-MODERATE Prescribed by: IFEANYI EISENBERG on 05/30/17 08 Medroxyprogesterone Acetate (Provera) 10 Mg Tablet, 10 MG PO DAILY, (Reported) Entered as Reported by: ERICK HADLEY on 05/24/17 1037 Metformin HCl (Metformin HCl) 500 Mg Tablet, 1,000 MG PO DAILY, (Reported) Entered as Reported by: ERICK HADLEY on 05/24/17 1037 Phentermine HCl (Phentermine HCl) 37.5 Mg Capsule, 37.5 MG PO DAILY, (Reported) Entered as Reported by: ERICK HADLEY on 05/24/17 1037 Sertraline HCl (Zoloft) 100 Mg Tablet, 150 MG PO DAILY, (Reported) Entered as Reported by: ERICK HADLEY on 05/24/17 1037 Simethicone (Simethicone) 80 Mg Tab.chew, 40 MG PO TID PRN for INDIGESTION 2ND LINE Prescribed by: IFEANYI EISENBERG on 05/30/17842 Review of Systems Review of Systems Constitutional: no symptoms reported Respiratory: no symptoms reported Cardiovascular: no symptoms reported Gastrointestinal: no symptoms reported Genitourinary: no symptoms reported Musculoskeletal: no symptoms reported Skin: see HPI Psychiatric/Neurological: No Symptoms Reported Endocrine: No Symptoms Reported Hematologic/Lymphatic: No Symptoms Reported Past Gltcfdb-Itkvmd-Cwfftp Hx Patient Social History Tobacco Use?: No Use of E-Cig and/or Vaping dev: No Substance use?: No Alcohol Use?: No Pt feels they are or have been: No Immunizations Up To Date Tetanus Booster (TDap): Unknown Influenza Vaccine Up-to-Date: Yes; Up-to-Date Seasonal Allergies Seasonal Allergies: No Past Medical History Surgeries: Yes Gallbladder Respiratory: No Cardiac: Yes High Cholesterol, Hypertension Neurological: No Reproductive Disorders: Yes (AUB) Female Reproductive Disorders: Menstrual Problems, Ovarian Cyst Sexually Transmitted Disease: No HIV/AIDS: No Genitourinary: No Gastrointestinal: Yes Gastroesophageal Reflux, Irritable Bowel Musculoskeletal: No Endocrine: Yes Diabetes, Non-Insulin dep HEENT: No Loss of Vision: Bilateral Hearing Impairment: Denies Cancer: No Psychosocial: Yes Anxiety, Depression Adverse Reaction/Blood Tranf: No Physical Exam Vital Signs Vital Signs - First Documented 12/25/21 21:26 Temp 36.4 Pulse 91 Resp 20 B/P (MAP) 186/97 (126) Pulse Ox 97 O2 Delivery Room Air Capillary Refill : Less Than 3 Seconds General Appearance: WD/WN, no apparent distress Extremities: normal range of motion, no pedal edema, no calf tenderness, normal capillary refill, other (RIGHT LOWER LEG/LATERAL ASPECT WITH 3 X4 CM AREA OF TENDERNESS, INDURATION AND VERY FAINT ERYTHEMA, WITH TINY CENTRAL PUNCTATION. NO FLUCUTANCE, NO DRAINAGE. NO STREAKS. NO SWELLING TO AREA OR TO LEG/ANKLE/FOOT. NO CALF TENDERNESS. NEGATIVE CAYETANO'S. MOTOR/SENSORY/VASCULAR INTACT. ) Neurologic/Psychiatric: no motor/sensory deficits, alert, normal mood/affect, oriented x 3 Skin: normal color, warm/dry, other ( ABOVE) Progress/Results/Core Measures Results/Orders My Orders Orders - QUOC GOEL DO Dipht,Pertuss(Acell),Tet Adult (Boostrix (12/25/21 22:15) Rx-Cephalexin Capsule (Rx-Keflex Capsule (12/25/21 22:10) Vital Signs/I&O 12/25/21 21:26 Temp 36.4 Pulse 91 Resp 20 B/P (MAP) 186/97 (126) Pulse Ox 97 O2 Delivery Room Air Blood Pressure Mean: 126 Progress Progress Note : Progress Note DPT GIVEN WILL START ON ANTIBIOTICS, PT IS DIABETIC. Departure Impression Primary Impression: POSSIBLE INSECT BITE TO RIGHT LOWER LEG Additional Impression: Xyotqejxjz-xkkuafqos-ybyeuwn (DPT) vaccination administered at current visit Disposition: 01 HOME, SELF-CARE Condition: Stable Departure-Patient Inst. Decision time for Depature: 22:15 Referrals: [facility] (PCP/Family) Primary Care Physician Patient Instructions: Cellulitis (Skin Infection), Adult (DC), Diphtheria and Tetanus Toxoids, and Acellular Pertussis Vaccine, Insect Bites and Stings (DC) Add. Discharge Instructions: TYLENOL AND MOTRIN NEEDED FOR PAIN COOL COMPRESSES TO AREA AT 20 MINUTE INTERVALS FOLLOW UP WITH YOUR DR IF SYMPTOMS NOT IMPROVING AFTER 2-3 DAYS OR IF WORSENING All discharge instructions reviewed with patient and/or family. Voiced understanding. Scripts Cephalexin (Cephalexin) 500 Mg Tablet 500 MG PO QID, #40 TAB Prov: QUOC GOEL DO 12/25/21 QUOC GOEL DO Dec 25, 2021 22:18
[2021-12-25 22:32] VITALS: BP 186/97
== END 2021-12-25 22:32 | disposition home or self-care (01) ==
LOC: EDUNIT# 21:22 → ER 21:23
DX: M79.661 Pain in right lower leg (principal); E11.9 Type 2 diabetes mellitus without complications; Z23 Encounter for immunization; Z28.310 Unvaccinated for COVID-19; Z79.4 Long term (current) use of insulin; Z79.84 Long term (current) use of oral hypoglycemic drugs
CPT/HCPCS: 90471; 90715; 99284